=== PATIENT | female | born 1960 | race Caucasian/White ===

== ENCOUNTER → 2018-01-01 10:27 | Outpatient (CLI) | payer SELFPAY | PROVIDERS: PCP Emergency Medicine; Visit Provider Emergency Medicine | DX: R07.9 Chest pain, unspecified (principal) | CPT/HCPCS: 93005 ==

== ENCOUNTER → 2020-08-11 10:50 | Outpatient (CLI) | payer SELFPAY ==
--- NOTE | 2020-08-11 | ECG_ITS ---
APPROVED REPORT Exam: Resting ECG HR:106 bpm ECG Measurements Heart Rate 106 AXES NC 120 P 57 QRSd 70 QRS 60 QT 328 T 42 QTc 435 Conclusion Sinus tachycardia Biatrial enlargement Abnormal ECG Electronically signed by : Mike Humphreys, 08/12/2020 08:47:27
[2020-08-11 11:18] LABS: Basophils # 0.1 K/mm3 (0-0.2); Basophils % 0.7 % (0.1-2.0); Eosinophils # 0.1 K/mm3 (0.0-0.4); Eosinophils % 0.7 % (0.1-12.0); Hematocrit 45.5 % (37.0-47.0); Hemoglobin 14.3 g/dL (12.2-16.2); Lymphocytes % 24.2 % (10-50); Mean Corpuscular HGB Conc 31.4 g/dL (31.8-35.4); Mean Corpuscular Hemoglobin 27.1 pg (27.0-31.2); Mean Corpuscular Volume 86.3 fl (81-99); Mean Platelet Volume 7.3 fl (7.4-10.4); Monocytes # 0.4 K/mm3 (0.1-1.0); Monocytes % 5.4 % (1.7-9.3); Neutrophils # 5.6 K/mm3 (1.8-7.8); Platelet Count 330 K/mm3 (142-424); Red Blood Count 5.27 M/mm3 (4.20-5.40); Red Cell Distribution Width 14.4 % (11.5-17.5); White Blood Count 8.2 K/mm3 (4.8-10.8)
[2020-08-11 11:42] LABS: Chloride 104 mmol/L (98-107)
[2020-08-11 11:43] LABS: Potassium 4.9 mmoL/L (3.5-5.1); Sodium 140 mmol/L (136-145)
[2020-08-11 11:45] LABS: Alanine Aminotransferase 19 U/L (12-78); Alkaline Phosphatase 103 U/L (38-126); Amylase 73 U/L (30-110); Anion Gap 13.9 mEq/L (5-15); Aspartate Amino Transferase 29 U/L (14-36); Bilirubin,Total 0.5 mg/dl (0.2-1.3); Blood Urea Nitrogen 16 mg/dl (7-17); Carbon Dioxide 27 mmol/L (22.0-30.0); Estimated Glomerular Filt Rate 64 ml/min (>60); GFR (African American) 77 ML/MIN (>60)
[2020-08-11 11:46] LABS: Albumin Level 4.8 g/dl (3.5-5.0); Albumin/Globulin Ratio 1.5 (1.1-1.8); Creatine Kinase 56 U/L (30-135); Globulin 3.3 g/dL (1.3-3.2); Glucose 101 mg/dl (74-100); Lipase 174 U/L (23-300); Total Protein,Serum 8.1 g/dl (6.3-8.2)
[2020-08-11 11:55] LABS: CKMB Relative Index 1.4 U/L (0-4.0); Creatine Kinase MB 0.8 ng/ml (0.0-2.03)
[2020-08-11 12:00] LABS: Troponin I < 0.01 ng/ml (0.00-0.034)
== END ==
PROVIDERS: Visit Provider Physician Assistant
DX: R07.9 Chest pain, unspecified (principal); K21.9 Gastro-esophageal reflux disease without esophagitis
CPT/HCPCS: 36415; 80053; 82150; 82550; 82553; 83690; 84443; 84484; 85025; 93005

== ENCOUNTER → 2021-08-29 13:29 | Outpatient (CLI) | payer OTHER, SELFPAY ==
--- NOTE | 2021-08-29 13:42 | XR_ITS ---
FINAL REPORT CLINICAL HISTORY: bunion pain FINDINGS: RIGHT FOOT: Three views of the right foot were obtained. There is no acute fracture or dislocation. There are moderate degenerative changes. There are multiple subchondral cysts or chronic erosions. There is dorsal dislocation of the 2nd, 3rd, and 4th digits at the MTP joints. There is soft tissue swelling lateral to the 5th MTP joint. There is a chronic calcification medial to the 5th MTP joint. IMPRESSION: Moderate degenerative change with multiple subchondral cysts or chronic erosions and other chronic findings as described. Reviewed, Interpreted and Dictated by Codey Burch III, MD Transcribed by Miki Preciado Authenticated by Codey Burch III, MD on 08/29/2021 02:38:51 PM [facility]
--- NOTE | 2021-08-29 13:42 | XR_ITS ---
FINAL REPORT CLINICAL HISTORY: Bunion pain FINDINGS: LEFT FOOT: Three views of the left foot were obtained. There is no acute fracture or dislocation. There is severe hallux valgus deformity. There is lateral subluxation and angulation of the 1st digit. There are multiple subchondral cysts or chronic erosions. There is dorsal dislocation of the 2nd, 3rd, and 4th digits at the MTP joints. IMPRESSION: Severe hallux valgus deformity with other chronic changes as described. Reviewed, Interpreted and Dictated by Codey Burch III, MD Transcribed by Miki Preciado Authenticated by Codey Burch III, MD on 08/29/2021 02:38:48 PM [facility]
== END ==
PROVIDERS: PCP Family Medicine; Visit Provider Podiatrist
DX: M79.672 Pain in left foot (principal); M79.671 Pain in right foot
CPT/HCPCS: 73630

== ENCOUNTER 2021-09-09 14:24 | Emergency (ER) | payer OTHER, SELFPAY ==
[2021-09-09 14:40] VITALS: BP 142/85; PULSE 119; RESP 16; TEMP 36.9; O2SAT 98; BMI 25.2
--- NOTE | 2021-09-09 15:15 | HMH.EDUTC ---
[facility] Disposition Clinical Impression: Cat bite Qualifiers: Encounter type: initial encounter Qualified Code(s): W55.01XA - Bitten by cat, initial encounter Disposition: Home, Self-Care Condition on Discharge: Good Instructions: Amoxicillin and Clavulanic Acid, DI for Cat Bite Additional Instructions: Clean area well with antibacterial soap and water Watch area for worsening of swelling and redness follow up immediately if seen Return if needed Take medication as prescribed Over the counter Motrin and/or Tylenol for fever or pain Straight to ER if any life threatening symptoms, worsening of infection, drainage, streaks Etc Prescriptions: Amoxicillin/Potassium Clav [Amox-Clav 875-125 mg Tablet] 1 tab PO BID #14 tab Transmission Status: Pending to [facility] Referrals: Damon Osuna MD [Primary Care Provider] - Time of Disposition: 15:22 Medical Decision Making - Osmin Inquiry Pt receiving controlled substance: No Osmin was queried for this patient: No Vital Signs: 09/09/21 14:40 Temperature 98.4 F Temperature Source Oral Pulse Rate [Right Brachial] 119 H Respiratory Rate 16 Blood Pressure [Right Arm] 142/85 H Blood Pressure Mean [Right Arm] 104 Blood Pressure Source [Right Arm] Automatic Cuff Blood Pressure Position [Right Arm] Sitting 02 Sat by Pulse Oximetry 98 Oxygen Delivery Method Room Air [facility] HPI - General Stated complaint: AO 09/06 bit by cat R leg Time Seen by Provider: 09/09/21 15:15 Mode of Arrival: Ambulatory Source of Information: Patient Limitations: No Limitations Description of Symptoms (Recalled from Triage Doc. by RN): PATIENT STATES SHE WAS BITTEN BY A STRAY CAT ON HER RIGHT ANKLE FRIDAY HEENT Symptoms (Recalled from RN notes): No Resp Symptoms (Recalled from RN notes): No Skin Symptoms (Recalled from RN notes): Yes MS Symptoms (Recalled from RN notes): No Functional Status (Recalled from RN notes): WNL - History of Present Illness Provider Complaint: Patient states that she was bitten by stray cat on Friday States that she noticed that it was looking red around the bite area and having some swelling States that daughter is a nurse and said she needed to get it checked so she came in - Related Data Home Medications Medication Instructions Recorded Confirmed celecoxib 100 mg capsule 100 mg PO cap 08/29/21 08/29/21 cetirizine 10 mg tablet 10 mg PO tab 08/29/21 08/29/21 omeprazole 40 mg capsule,delayed 40 mg PO cap 08/29/21 08/29/21 release sulfasalazine 500 mg ea PO 08/29/21 08/29/21 tablet,delayed release Previous Rx's Medication Instructions Recorded ondansetron 4 mg disintegrating 4 mg PO TID PRN 4 Days #12 tab 03/10/18 tablet Amoxicillin/Potassium Clav 1 tab PO BID #14 tab 09/09/21 [Amox-Clav 875-125 mg Tablet] Allergies Allergy/AdvReac Type Severity Reaction Status Date / Time No Known Allergies Allergy Verified 08/29/21 14:19 - Worker's Comp Is this a Worker's Comp case?: No [facility] History - Hepatitis A Screen Attestation statement:: This patient has been screened for Hepatitis A risk factors. I have reviewed the patient's past medical history: Yes Medical History: Reports:: Anxiety, Gastroesophageal Reflux Disease(GERD) Other Medical History: Reports: Arthritis Other Surgeries: Yes: No Previous Surgery - Social History Smoking Status: Current every day smoker Tobacco Type: cigarettes # Packs/Day (cigarettes): 1 Alcohol Intake: never Substance Use Type: denies use Occupational Status: other Housing: house Household Members: family - Psychiatric History Pschychiatric History:: Reports:: Anxiety Family Hx:: Diabetes ROS Obtained: Yes All systems reviewed & no additional complaints, Yes Systems reviewed as appropriate & no additional complaints - Constitutional Constitutional: Reports system reviewed and no additional complaints, except as docu, Denies body ache, Denies chills, Denies f
[2021-09-09 15:25] VITALS: BP 142/85; PULSE 119; RESP 16; TEMP 36.9; O2SAT 98
== END 2021-09-09 15:29 | disposition home or self-care (01) ==
PROVIDERS: Emergency Provider Nurse Practitioner; PCP Family Medicine
DX: S91.031A Puncture wound without foreign body, right ankle, initial encounter (principal); W55.01XA Bitten by cat, initial encounter
CPT/HCPCS: 99212; G0463

== ENCOUNTER → 2021-12-24 10:40 | Outpatient (CLI) | payer OTHER, SELFPAY ==
[2021-12-24 11:22] LABS: Basophils # 0.1 K/mm3 (0-0.2); Basophils % 1.2 % (0.1-2.0); Eosinophils # 0.1 K/mm3 (0.0-0.4); Eosinophils % 0.9 % (0.1-12.0); Hematocrit 43.8 % (37.0-47.0); Hemoglobin 13.8 g/dL (12.2-16.2); Lymphocytes % 31.5 % (10-50); Mean Corpuscular HGB Conc 31.5 g/dL (31.8-35.4); Mean Corpuscular Hemoglobin 27.9 pg (27.0-31.2); Mean Corpuscular Volume 88.6 fl (81-99); Mean Platelet Volume 7.8 fl (7.4-10.4); Monocytes # 0.5 K/mm3 (0.1-1.0); Monocytes % 7.4 % (1.7-9.3); Neutrophils # 3.7 K/mm3 (1.8-7.8); Neutrophils % 58.9 % (37.0-80.0); Platelet Count 305 K/mm3 (142-424); Red Blood Count 4.94 M/mm3 (4.20-5.40); Red Cell Distribution Width 15.4 % (11.5-17.5); White Blood Count 6.3 K/mm3 (4.8-10.8)
[2021-12-24 11:43] LABS: Chloride 107 mmol/L (98-107)
[2021-12-24 11:44] LABS: Potassium 4.2 mmoL/L (3.5-5.1); Sodium 143 mmol/L (136-145)
[2021-12-24 11:46] LABS: Blood Urea Nitrogen 13 mg/dl (7-17); Estimated Glomerular Filt Rate 72 ml/min (>60); GFR (African American) 88 ML/MIN (>60)
[2021-12-24 11:47] LABS: Alanine Aminotransferase 19 U/L (12-78); Albumin Level 4.4 g/dl (3.5-5.0); Albumin/Globulin Ratio 1.5 (1.1-1.8); Alkaline Phosphatase 94 U/L (38-126); Anion Gap 10.2 mEq/L (5-15); Aspartate Amino Transferase 31 U/L (14-36); Calcium 8.9 mg/dl (8.4-10.2); Carbon Dioxide 30 mmol/L (22.0-30.0); Globulin 2.9 g/dL (1.3-3.2); Glucose 92 mg/dl (74-100); Total Protein,Serum 7.3 g/dl (6.3-8.2)
[2021-12-24 11:49] LABS: Bilirubin,Total < 0.1 mg/dl (0.2-1.3)
== END ==
PROVIDERS: PCP Family Medicine; Visit Provider Internal Medicine
DX: M06.9 Rheumatoid arthritis, unspecified (principal); R53.83 Other fatigue; Z79.899 Other long term (current) drug therapy
CPT/HCPCS: 36415; 80053; 85025

== ENCOUNTER → 2022-09-03 11:23 | Outpatient (POV) | payer OTHER, SELFPAY | PROVIDERS: Visit Provider Dermatology | DX: Z00.00 Encounter for general adult medical examination without abnormal findings (principal) ==

== ENCOUNTER 2023-10-31 12:46 | Outpatient (CLI) | payer MEDICARE, SELFPAY ==
[2023-10-31] MEDS: ALBUTEROL 0.083% 2.5 MG/3 ML NEB IH (14:01)
--- NOTE | 2023-10-31 14:16 | XR_ITS ---
FINAL REPORT CLINICAL HISTORY: CHRONIC COUGHING congestion with yellow/brown sputum 40 yr smoker FINDINGS: No acute pulmonary density is evident. There is no evidence of effusion or other pleural disease. The mediastinum has a normal appearance. The cardiac silhouette is unremarkable. IMPRESSION: Unremarkable chest exam. Authenticated and ERN
[2023-10-31 15:51] LABS: Basophils # 0.1 K/mm3 (0-0.2); Basophils % 0.7 % (0.1-2.0); Eosinophils # 0.1 K/mm3 (0.0-0.4); Eosinophils % 1.1 % (0.1-12.0); Hematocrit 39.4 % (37.0-47.0); Hemoglobin 12.3 g/dL (12.2-16.2); Lymphocytes # 2.7 K/mm3 (0.7-4.5); Lymphocytes % 31.2 % (10-50); Mean Corpuscular HGB Conc 31.2 g/dL (31.8-35.4); Mean Corpuscular Hemoglobin 28.1 pg (27.0-31.2); Mean Corpuscular Volume 90.2 fl (81-99); Mean Platelet Volume 8.3 fl (7.4-10.4); Monocytes # 0.6 K/mm3 (0.1-1.0); Monocytes % 6.7 % (1.7-9.3); Neutrophils # 5.1 K/mm3 (1.8-7.8); Neutrophils % 60.3 % (37.0-80.0); Platelet Count 254 K/mm3 (142-424); Red Blood Count 4.37 M/mm3 (4.20-5.40); Red Cell Distribution Width 16.3 % (11.5-17.5); White Blood Count 8.5 K/mm3 (4.8-10.8)
[2023-10-31 16:52] LABS: Chloride 108 mmol/L (98-107); Sodium 141 mmol/L (136-145)
[2023-10-31 16:53] LABS: Potassium 4.5 mmoL/L (3.5-5.1)
[2023-10-31 16:54] LABS: Erythrocyte Sedimentation Rate 22 mm/hr (0-30)
[2023-10-31 16:55] LABS: Alanine Aminotransferase 20 U/L (12-78); Alkaline Phosphatase 90 U/L (38-126); Anion Gap 9.5 mEq/L (5-15); Aspartate Amino Transferase 28 U/L (14-36); Bilirubin,Total 0.2 mg/dl (0.2-1.3); Blood Urea Nitrogen 17 mg/dl (7-17); Calcium 9.6 mg/dl (8.4-10.2); Carbon Dioxide 28 mmol/L (22.0-30.0); Estimated Glomerular Filt Rate 56 ml/min (>60); GFR (African American) 68 ML/MIN (>60); Glucose 82 mg/dl (74-100)
[2023-10-31 16:56] LABS: Albumin/Globulin Ratio 1.4 (1.1-1.8); Globulin 2.9 g/dL (1.3-3.2); Total Protein,Serum 6.9 g/dl (6.3-8.2)
== END 2023-10-31 23:59 | disposition home or self-care (01) ==
LOC: RT 12:47
PROVIDERS: Internal Medicine; PCP Family Medicine; Visit Provider Physician Assistant
DX: R05.3 Chronic cough (principal); M05.79 Rheumatoid arthritis with rheumatoid factor of multiple sites without organ or systems involvement; Z79.899 Other long term (current) drug therapy
CPT/HCPCS: 36415; 71046; 80053; 85025; 85651; 94060; 94726; 94729; J7613

== ENCOUNTER 2024-05-18 11:57 | Outpatient (CLI) | payer MEDICARE, SELFPAY ==
--- NOTE | 2024-05-18 11:59 | XR_ITS ---
FINAL REPORT CLINICAL HISTORY: foot pain COMPARISON: 08/29/2021 FINDINGS: RIGHT FOOT Three views demonstrate no acute fracture or dislocation. There are advanced hypertrophic changes of osteoarthritis at the 1st through 5th metatarsal phalangeal joints with underlying degenerative cyst formation. There is subluxation of the second and third metatarsal phalangeal joints. There is degenerative subchondral cyst formation in the distal portion of the first proximal phalange. No acute soft tissue abnormality is seen. IMPRESSION: Advanced changes of osteoarthritis most evident at the metatarsophalangeal joints, particularly at the 2nd through 5th. Inflammatory arthritis such as rheumatoid or psoriatic not entirely excluded. Reviewed, Interpreted and Dictated by Umair Degroot MD Transcribed by Makeda Puentes Authenticated and [facility]
--- NOTE | 2024-05-18 11:59 | XR_ITS ---
FINAL REPORT CLINICAL HISTORY: foot pain COMPARISON: 08/29/2021 FINDINGS: LEFT FOOT Three views were obtained. There is a marked hallux valgus deformity. There is complete lateral dislocation of the first proximal phalange relative to the distal portion of the first metatarsal. There are hammertoe deformities of the 2nd through 5th digits with selective hypertrophic changes of the 2nd through 5th metatarsophalangeal joints. Underlying inflammatory arthritis cannot be excluded. There is dislocation of the second and third metatarsophalangeal joints. No acute soft tissue abnormality is seen. IMPRESSION: Dislocation of the first, second, and third metatarsophalangeal joints. Reviewed, Interpreted and Dictated by Umair Degroot MD Transcribed by Makeda Puentes Authenticated and [facility]
== END 2024-05-18 23:59 | disposition home or self-care (01) ==
LOC: RAD 11:57
PROVIDERS: PCP Family Medicine; Visit Provider Podiatrist
DX: M79.671 Pain in right foot (principal); M79.672 Pain in left foot
CPT/HCPCS: 73630

== ENCOUNTER 2024-07-05 14:59 | Outpatient (CLI) | payer MEDICARE, SELFPAY ==
--- NOTE | 2024-07-05 15:01 | US_ITS ---
PROCEDURE INFORMATION: Exam: US Right Breast, Complete Exam date and time: 07/05/2024 3:05 PM Age: 63 years old Clinical indication: Palpable abnormality in the right breast TECHNIQUE: Imaging protocol: Complete ultrasound of all four quadrants of the right breast and the retroareolar regions, including ultrasound of the axilla when performed. COMPARISON: No relevant prior studies available. FINDINGS: ULTRASOUND: Breast ultrasound findings: Sonographic images of the right breast including the retroareolar region, all 4 quadrants and the axilla do not demonstrate any suspicious solid or cystic masses. The patient has a bruise at the right 10 o'clock axis the patient reports a palpable abnormality at this location. Sonographic images demonstrate increased echogenicity in the subcutaneous fat with 2 for full subcentimeter cystic components. Clear of interest measures 1.8 x 1.3 cm in greatest dimension as most consistent with benign posttraumatic fat necrosis. No architectural distortion or acoustical shadowing. No skin thickening or axillary adenopathy. IMPRESSION: No sonographic evidence of malignancy. Palpable abnormality under a visible bruise on the skin of the right upper quadrant 5 sonographically benign posttraumatic fat necrosis. Further evaluation of a palpable abnormality should be based on clinical grounds regardless of radiographic findings or lack thereof. A bilateral mammogram is recommended at the current time if the patient has not already done so. ASSESSMENT: BI-RADS Category 2: Benign.
== END 2024-07-05 23:59 | disposition home or self-care (01) ==
LOC: RAD 14:59
PROVIDERS: PCP Family Medicine; Visit Provider Physician Assistant
DX: N63.11 Unspecified lump in the right breast, upper outer quadrant (principal)
CPT/HCPCS: 76641

== ENCOUNTER 2024-10-20 07:25 | Outpatient (CLI) | payer MEDICARE, SELFPAY ==
--- OUTSIDE RECORDS SUMMARY | 2024-08-12 07:15 | XMS_ITS ---
[facility] Organization [facility] Address [address] [facility] [address] [place] [id number] Care Team Providers Care Mobility Developer Name Role Phone Logan Osuna Primary Care Provider [phone] Jus Moreno Unavailable [phone] Allergies No Known Allergies REASON FOR VISIT right eye hurting and red Medications Medication SIG (Take, Route, Frequency, Duration) Notes Start Date End Date Status hydrOXYzine HCl 25 MG 1 tablet as needed Orally four times a day as needed Active Albuterol Sulfate HFA 108 (90 Base) MCG/ACT 2 puff(s) inhaled every 6 hours Active CeleBREX 200 MG 1 cap(s) orally once a day Active Paxil 20 MG 1 tablet in the morn ing Orally Once a day; Duration: 90 days Active Omeprazole 40 MG 1 cap(s) orally once a day; Duration: 30 days Active Ofloxacin 0.3 % 1 drop Ophthalmic Fo ur times a day 08/12/2024 Active rOPINIRole HCl 0.5 MG 1 tablet Orally On ce a day; Duration: 90 days Active sulfaSALAzine 500 MG 3 tablet orally BID Active Vital Signs Blood pressure systolic 149 mm Hg 08/13/19 25 Blood pressure diastolic 90 mm Hg 025 Heart Rate 105 /min 08/12/2024 Height 64 in 08/12/2024 Weight 145.4 lbs 08/12/2024 BMI 24.96 kg/m2 08/12/2024 Encounters Encounter Location Date Provider Diagnosis [place] [address] [facility] [address] [place] [id number] 08/12/2024 Jus Moreno Conjunctivitis of ri ght eye, unspecified conjunctivitis type H10.9 ; Elevated blood pressure reading R03.0 and BMI 24.0-24.9, adult Z68.24 Assessments Encounter Date Diagnosis (ICD Code) Assessment Notes Treatment Notes Treatment Clinical Notes Section Notes 08/12/2024 Conjunctivitis of right eye, unspecified conjunctivitis type (ICD-10 - H10.9) 08/12/2024 Elevated blood pressure reading (ICD-10 - R03.0) 08/12/2024 BMI 24.0-24.9, adult (ICD-10 - Z68.24) Plan Of Treatment Medication Medication Name Sig Start Date Stop Date Notes Ofloxacin 0.3 % 1 drop Ophthalmic Four times a day 025 Next Appt Details Follow Up: 3 or 4 Weeks, Leisa son: Provider Name:Danette Banuelos cynthia, 12/01/2024 09:00:00 AM, [address] [facility] [address] [facility], [address], [place], [place], [id number], Progress Notes * Jose Elias HUIOB:1960 (63 yo F)Acc No.[id number]:08/12/2024 Progress Notes Patient: Whitney GONZALEZ Provider: Rhonda Moreno M.D. :1960 A ge:63 Y S ex:Female Date:08/12/2024 Address:[address] [place], [place] [id number] Pcp:Logan Osuna Subjective: * Chief Complaints: * 1 . Right eye hurting and red. * HPI: O pthalmology: 63 year old female presents with c/o eye pain P t complains of rt eye pain and redness for 2-3 days. Pt states she works outside alot and does not remembering injury or getting anything in eye. * ROS: D ERMATOLOGY: no R candida. n o H moshe. G ASTROENTEROLOGY: no N ausea. n o V omiting. U ROLOGY: no D ifficulty urinating. n o B lood in urine. * Medical History: A maria del rosario Reflux, Arthritis , Rheumatoid Arthritis, COPD, Tobacco addiction. * Surgical History: D enies Past Surgical History. * Hospitalization/Major Diagno stic Procedure: D enies Past Hospitalization. * Family History: F ather: alive. M [...] , Taking rOPINIRole HCl 0.5 MG Tablet 1 tablet Orally Once a day , Discontinued Trelegy Ellipta 100-62.5-25 MCG/ACT Aerosol Powder Breath Activated 1 puff Inhalation Once a day , Medication List reviewed and reconciled with the patient * Allergies: N .K.D.A. Objective: * Vitals: W t: 145.4, Temp: 97.8, BP: 149/90, HR: 105, Nurse: mendy, Ht: 64, BMI:24.96. * Examination: G eneral Examination: General Appearance: N AD. H EENT: P ERRLA , EOM's with normal ROM , conjunctival injection of right eye. Assessment: * Assessment: 1. C onjunctivitis of right eye, unspecified conjunctivitis type - H10.9 (Primary) ?2. E levated blood pressure reading - R03.0 3 . B OR 24.0-24.9, adult - Z68.24 Plan: * Treatment: * Procedure Codes: G 2211 Complex e/m visit add on, 3077F SYST BP = 140 MM HG6 IT, 3080F DIAST BP = 90 MM HG, G8420 BMI<30 AND >=22 CALC & DOCU * Follow Up: 3 or 4 Weeks * Images: Billing Information: * Visit Code: 16548 Office Visit, Est Pt., Level 3. * Procedure Codes: G2211 Complex e/m visit add on. 3077F SYST BP = 140 MM HG6 IT. 3080F DIAST BP = 90 MM HG. G8420 BMI<30 AND >=22 CALC & DOCU. * Electronic signature of Ana Moreno MD on 10/20/2024 at 07:26 AM EDT Sign off status: Pending * Provider: Rhonda Moreno M.D. Date: 0 08/12/2024 Generated for Cecilio lee/Flip/Mikelitting on: 0 10/20/2024 07:26 AM EDT History and Physical Notes * HPI (History of Present Illness) Category Sub-Category Detail Notes Category Not es Opthalmology eye pain Pt complains of rt eye pain and redness for 2-3 days. Pt states she works outside alot and does not remembering injury or getting anything in eye Examination Category Sub-Category Detail Notes Category Not es General Examination HEENT: PERRLA , EOM 's with normal ROM , conjunctival injection of right eye General Appearance: NAD
--- OUTSIDE RECORDS SUMMARY | 2024-09-02 06:00 | XMS_ITS ---
Author Organization [facility] Address [address] [facility] [address] [place] [phone] Care Team Providers Care Sorting Livestock Worker Name Role Phone Logan Osuna Primary Care Provider Jus Moreno Unavailable [phone] Allergies No Known Allergies REASON FOR VISIT [...] Provider Diagnosis [place] [address] [facility] [address] [place] [id number] 09/02/2024 Jus Moreno Elevated blood press ure [...] Details Follow Up: as scheduled,and prn, Reason: Provider Name:Danette marie, 12/01/2024 09:00:00 AM, [address] [facility] [address] [facility], [address] , [place], [place], [phone], Progress Notes * Jose Elias HUIOB:1960 (63 yo F)Acc No.[id number]:09/02/2024 Progress Notes Patient: Whitney GONZALEZ Provider: Rhonda Moreno M.D. :1960 A ge:63 Y S ex:Female Date:09/02/2024 Address:[address] [place], [place] [id number] Pcp:Logan Osuna Subjective: * Chief Complaints: * [...] unspecified trigger - J30.9 5 . B [place] 24.0-24.9, adult - Z68.24 Plan: * Treatment: [...] * Images: Billing Information: * Visit Code: 47212 Office Visit, Est Pt., Level 4. * Procedure Codes: G2211 Complex e/m visit add on. 3074F SYST BP LT 130 MM HG. 3079F DIAST BP 80-89 MM HG. G8420 BMI<30 AND >=22 CALC & DOCU. * Electronic signature of Ana Moreno MD on 10/20/2024 at 07:27 AM EDT Sign off status: Pending * Provider: Rhonda Moreno M.D. Date: 0 09/02/2024 Generated for Cecilio lee/Flip/eTransmitting on: 0 10/20/2024 07:27 AM EDT History and Physical Notes * [...]
--- OUTSIDE RECORDS SUMMARY | 2024-10-12 09:45 | XMS_ITS ---
Author Organization [facility] Address [address] [facility] [address] [place] [id number] Care Team Providers Care Cable Machine Operator Name Role Phone Logan Osuna Primary Care Provider Results Component Value Reference Range Notes P-CBC With Platelet No Diffe rential Reviewed date:10/14/2024 04:24:45 PM Interpretation:Normal Performing Lab: Notes/Report: Test performed by [facility] [address] [place], [place] [address] , [place] [address] Morgan Sweeney MD, Rotary Rock Drilling Machine Operator CLIA: [id number] WBC 6.5 3.8-11.5 K/uL Red Blood Cell [...] Interpretation:Normal Performing Lab: Notes/Report: Test performed by [facility] [address] [place], [place] [address] , [address], [place] [address] Morgan Sweeney MD, Rotary Rock Drilling Machine Operator CLIA: [id number] Neutrophils-Manual 62 41-77 % Lymphocytes Manual 28 14-48 % Monocytes Manual 6 4-13 % Eosinophils Manual 3 0-8 % Basophils Manual 1 0-1 % Polychromasia Moderate Poikilocytosis Moderate Verito Cell Few Ovalocytes Few Tear Drop Cells Few Platelet Slide Review Normal REASON FOR VISIT blood work Encounters Encounter Location Date Provider Diagnosis [facility] [address] [facility] [address] [facility] [address] [place] [id number] 10/12/2024 R David Osuna 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 and 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 Assessments Encounter Date Diagnosis (ICD Code) Assessment Notes Treatment Notes Treatment Clinical Notes Section Notes 10/12/2024 Rheumatoid arthritis involving multiple sites with positive rheumatoid factor (ICD-10 - M05.79) 10/12/2024 Immunodeficiency due to drugs (ICD-10 - D84.821) Plan Of Treatment Next Appt Details Provider Name:Danette Palma Sahilleanne y, 12/01/2024 09:00:00 AM, [address] [facility] 36 [facility], [address], [place], [place], [id number], Progress Notes * Jose Elias HUIOB:1960 (63 yo F)Acc No.[id number]:10/12/2024 Patient: Whitney GONZALEZ Provider: Logan Osuna M.D. :1960 A ge:63 Y S ex:Female Date:10/12/2024 Address:[address] [place] [address] [id number] Subjective: * Chief Complaints: * 1 . [...] W BC 6.5 3.8-11.5 - K/uL * [facility], IT support 10/13/2024 04:35:04 : This order was created by the Interface. Logan Osuna 10/14/2024 04:17:43 PM EDT > reviewed. Please fax results to materials recycler who ordered the lab Tasneem Taylor 10/14/2024 [...] T ear Drop Cells Few - * [facility], IT support 10/13/2024 04:35:05 : This order was created by the Interface. Logan Osuna 10/14/2024 04:17:43 PM EDT > reviewed. Please fax results to materials recycler who ordered the lab Tasneem Taylor 10/14/2024 04:24:39 PM EDT >results faxed * Images: Billing Information: * Visit Code: * Procedure Codes: * Electronic signature of Logan Osuna MD on 10/20/2024 at 07:27 AM EDT Sign off status: Pending * Provider: Logan Osuna M.D. Date: 10/12/2024 Generated for Cecilio lee/Flip/eTransmitting on: 0 10/20/2024 07:27 AM EDT
--- NOTE | 2024-10-20 07:26 | CT_ITS ---
FINAL REPORT TECHNIQUE: Thin section axial images were obtained from the lung apices to the upper abdomen by computed tomography. Reformatted images were obtained and reviewed. This study was performed with techniques to keep radiation doses al low as reasonably achievable (ALARA). Individualized dose reduction techniques using automated exposure control or adjustment of mA and/or kV according to the patient's size were employed. CLINICAL HISTORY: TOBACCO USE CURRENT SMOKER 1PPD X49 YEARS COMPARISON: None FINDINGS: CHEST CT LOW DOSE 65-year-old female, current smoker, 82-msnd-yioe history. CTDI vol (mGy): 2.90 DLP (mGy-cm): 94.29 There is no axillary adenopathy. There is no mediastinal or hilar mass or adenopathy. The heart is normal in size. There is no pericardial or pleural effusion. There is mild emphysema and mild pulmonary scarring. Lung window images demonstrate multiple tiny 2-3 mm nodular densities throughout the peripheral bilateral upper lobes. A wire rope sales representative example in the right upper lobe is a 3 mm nodule best seen on image #16 of series 4. There is another nodular opacity measuring up to 4 mm in size in the left lung base, best seen on image #51 of series 4. Limited images of the upper abdomen demonstrate a small sliding-type hiatal hernia. A large gallstone is present in the gallbladder. IMPRESSION: Lung-RADS category 2S, the S designation for the large gallstone. Recommend 12 month follow up low dose chest CT. Reviewed, Interpreted and Dictated by Umair Degroot MD Transcribed by Giana Gallagher Authenticated and [facility]
--- OUTSIDE RECORDS SUMMARY | 2024-10-20 07:27 | XMS_ITS | Patient Health Record ---
Author Organization [facility] [place] Address [address] [facility] [address] [place] [id number] Care Team Providers Care Clinical Editor Name Role Phone Logan Osuna Primary Care Provider [place], Jus Unavailable [phone] Danette Henson Unavailable [phone] Allergies No Known Allergies Results Component Value Reference Range Notes P-CBC With Platelet No Diffe rential Reviewed date:10/14/2024 04:24:45 PM Interpretation:Normal Performing Lab: Notes/Report: Test performed by [facility] [address] , [address], [place] [address] Morgan Sweeney MD, [employer] CLIA: [id number] WBC 6.5 3.8-11.5 K/uL Red Blood Cell [...] Interpretation:Normal Performing Lab: Notes/Report: Test performed by [facility] [address] [place] [address] , [address], [place] [address] Morgan Sweeney MD, [employer] CLIA: [id number] Neutrophils-Manual 62 41-77 % Lymphocytes Manual 28 14-48 % Monocytes Manual 6 4-13 % Eosinophils Manual 3 0-8 % Basophils Manual 1 0-1 % Polychromasia Moderate Poikilocytosis Moderate Verito Cell Few Ovalocytes Few Tear Drop Cells Few Platelet Slide Review Normal CBC Venipuncture (in house) Reviewed date:06/02/2024 11:24:11 AM Interpretation: Performing Lab: Notes/Report: wbc 5.4 3.5 - 10 lymph 21.6 15 - 50 mid 5.9 2 - 15 gran 72.5 35 - 80 rbc 4.54 3.5 - 5.5 hgb 12.7 11.5 - 16.5 hct 39.0 35 - 55 mcv 85.8 75 - 100 mch 28.1 25 - 35 mchc 32.7 31 - 38 platlet 244 100 - 400 P-Comprehensive Metabolic Pa asif (CMP) Reviewed date:06/03/2024 08:46:12 AM Interpretation: Performing Lab: Notes/Report: Test performed by [facility] [address] [place] [address] , [address], [place] [address] Morgan Sweeney MD, [employer] Lawyer CLIA: [id number] Sodium 139 135-145 mmol/L Potassium 4.6 3.5-5.3 mmol/L Chloride 105 97-108 mmol/L CO2 25 22-32 mmol/L Glucose 83 65-99 mg/dL BUN 15 8-23 mg/dL Creatinine 0.88 0.50-1.00 mg/dL Calcium 9.5 8.6-10.4 mg/dL eGFR by Creatinine 73 >59 mL/min/1.73m2 Protein 6.9 6.0-8.3 g/dL Albumin 4.3 3.5-5.3 g/dL Alkaline Phosphatase 83 35-121 IU/L ALT (SGPT) 18 <5-47 IU/L AST (SGOT) 21 <5-40 IU/L Bilirubin, Total 0.3 <0.2-1.2 mg/dL A/G Ratio 1.7 1.1-2.5 F-F-Trnwlnzw Protein (CRP) Reviewed date:06/03/2024 08:46:12 AM Interpretation: Performing Lab: Notes/Report: Test performed by [facility] [place] [address] Morgan Sweeney MD, [employer] Lawyer CLIA: [id number] C-Reactive Protein (CRP) 0.23 <0.50 mg/dL P-Sed Rate (ESR) Reviewed date:06/03/2024 08:46:12 AM Interpretation: Performing Lab: Notes/Report: Test performed by [facility] [place] [address] Morgan Sweeney MD, Military Lawyer CLIA: [id number] Erythrocyte Sedimentation Ra te (ESR), Automated 45 <31 mm/hr P-Lipid Panel Reviewed date:06/03/2024 08:46:12 AM Interpretation: Performing Lab: Notes/Report: Test performed by [facility] [place] [id number] Morgan Sweeney MD, Military Lawyer CLIA: [id number] Cholesterol 183 <200 mg/dL Triglycerides 118 <150 mg/dL HDL Cholesterol 50 >39 mg/dL Cholesterol / HDL Ratio 3.66 0.00-4.44 Ratio Non-HDL Cholesterol 133 <130 mg/dL LDL Cholesterol (Calculation) 109 <130 mg/dL LDL Cholesterol Levels* Less than 100 mg/dL Optimal 100 to 129 mg/dL Near Optimal/ Above Optimal 130 to 159 mg/dL Borderline High 160 to 189 mg/dL High 190 mg/dL and above Very High * Categories as recommended by the 2004 ATPIII guidelines LDL/HDL Ratio 2.2 <3.3 Ratio LDL Cholesterol Patient History Test Date: 08/01/2023 LDL Results: 129 Units: mg/dL % Change: - Test Date: 06/02/2024 LDL Results: 109 Units: mg/dL % Change: -15% P-Magnesium Reviewed date:06/03/2024 08:46:12 AM Interpretation: Performing Lab: Notes/Report: Test performed by [facility] [address] [place] [address] , [place] [address] Morgan Sweeney MD, Military Lawyer CLIA: [id number] Magnesium 2.0 1.6-2.4 mg/dL P-TSH reflex to FT4 Reviewed date:06/03/2024 08:46:12 AM Interpretation: Performing Lab: Notes/Report: Test performed by [facility] [address] [place] [address] , [place] [id number] Morgan Sweeney MD, Military Lawyer CLIA: [id number] TSH reflex to FT4 2.07 0.43-5.25 mU/L Cologuard Reviewed date:07/06/2024 02:00:30 PM Interpretation:Negative Performing Lab: Notes/Report: Negative Cologuard negative CBC Fingerstick (in house) Reviewed date:10/24/2023 08:41:05 AM Interpretation: Performing Lab: Notes/Report: wbc 5.9 3.5 - 10 lym 29.9% 15 - 50 mid 8.1% 2 - 15 gran 62.0% 35 - 80 rbc 4.27 3.5 - 5.5 hgb 12.1 11.5 - 16.5 hct 37.9 35 - 55 mcv 88.6 75 - 100 mch 28.5 25 - 35 mchc 32.1 31 - 38 plat 237 100 - 400 CXR Reviewed date:11/04/2023 10:19:19 AM Interpretation:Negative Performing Lab: Notes/Report: Negative Pulmonary Function Complete Reviewed date:11/21/2023 08:44:10 AM Interpretation: Performing Lab: Notes/Report: Ultrasound : Breast, right Reviewed date:07/16/2024 04:36:54 PM Interpretation: Performing Lab: Notes/Report: Ultrasound : Breast, right Reviewed date:07/16/2024 04:36:54 PM Interpretation: Performing Lab: Notes/Report: CBC Fingerstick (in house) Reviewed date:03/03/2024 01:12:01 PM Interpretation: Performing Lab: Notes/Report: wbc 6.9 3.5 - 10 lym 23.7 15 - 50 mid 5.9 2 - 15 gran 70.4 35 - 80 rbc 4.95 3.5 - 5.5 hgb 13.6 11.5 - 16.5 hct 42.7 35 - 55 mcv 86.3 75 - 100 mch 27.4 25 - 35 mchc 31.8 31 - 38 plat 199 100 - 400 P-Magnesium Reviewed date:12/03/2023 07:58:15 PM Interpretation:Normal Performing Lab: Notes/Report: Test performed by [facility] [address] , [place] [address] Morgan Sweeney MD, Military Lawyer CLIA: [id number] Magnesium 2.1 1.6-2.4 mg/dL P-TSH Reviewed date:12/03/2023 07:58:15 PM Interpretation:Normal Performing Lab: Notes/Report: Test performed by [facility] [address] [place] [address] , [address], [place] [address] Morgan Sweeney MD, Military Lawyer CLIA: [id number] TSH 1.78 0.43-5.25 mU/L P-Iron Reviewed date:12/03/2023 07:58:15 PM Interpretation:Normal Performing Lab: Notes/Report: Test performed by [facility] [address] [place] [address] , [address], [place] [address] Morgan Sweeney MD, Military Lawyer CLIA: [id number] Iron 74 37-145 ug/dL P-Sed Rate (ESR) Reviewed date:06/15/2024 08:20:38 AM Interpretation: Performing Lab: Notes/Report: Test performed by [facility] [address] [place] [address] , [address], [place] [address] Morgan Sweeney MD, Military Lawyer CLIA: [id number] Erythrocyte Sedimentation Ra te (ESR), Automated 30 <31 mm/hr Reason For Referral No Information Medications Medication SIG (Take, Route, Frequency, Duration) Notes Start Date End Date Status Omeprazole 40 mg TAKE ONE CAPSULE BY MOUTH ONCE A DAY; Duration: 30 Active Cetirizine HCl 10 MG 1 tablet [...] four times a day as needed Active PARoxetine HCl 20 mg TAKE ONE TABLET BY MOUTH EVERY MORNING; Duration: 30 Active Immunizations Vaccine Route Administration Date Status Comme nts Tetanus Tdap-Adacel (over 7yrs) IM Intramuscular 2014 Administered Problems Problem Type SNOMED Code ICD Code Onset Dates Problem Status W/U Status Risk Notes Problem Gastroesophageal reflux disease (654236464) GERD (gastroesophageal reflux disease) (K21.9) Active confirmed Problem Anxiety (97796102) Anxiety (F41.9) Active confi rmed Problem Sciatic nerve lesion (543544783) Piriformis syndrome of left side (G57.02) Active confirmed Problem Restless legs syndrome (14635364) Restless leg syndrome (G25.81) Active confirmed Problem Acute exacerbation of chronic obstructive airways disease (094157401) COPD exacerbation (J44.1) Active confirmed Problem Mixed hyperlipidemia (680889227) Mixed hyperlipidemia (E78.2) Active confirmed Problem Disorder of bone (12352189) Other specified disorders of bone density and structure, unspecified site (M85.80) Active confirmed Problem Sciatica (31598640) Sciatica of right side (M54.31) Active confirmed Problem Panic disorder (923270884) Panic attacks (F41.0) Active confirmed Problem Tension headache (217653638) Tension headache (G44.209) Active confirmed Problem Chronic bronchitis (31762919) Chronic bronchitis (J42) Active confirmed Problem Osteoarthritis of multiple joints (654079578) Osteoarthritis of multiple joints, unspecified osteoarthritis type (M15.9) Active confirmed Problem Rheumatoid arthritis (84305596) Rheumatoid arthritis involving multiple sites with positive rheumatoid factor (M05.79) Active confirmed Problem Sciatica (92436009) Acute right- sided low back pain with right-sided sciatica (M54.41) Active confirmed Problem Tobacco use (237138048) Tobacco use disorder (F17.200) Active confirmed Problem Rheumatoid arthritis (68213610) Rheumatoid arthritis flare (M06.9) Active confirmed Problem Allergic rhinitis (28759889) Allergic rhinitis, unspecified seasonality, unspecified trigger (J30.9) Active confirmed Problem Inflammation of joint of shoulder region (912612673) 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) Active confirmed Problem 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 Problem Body mass index 25-29 - overweight (194984925) Body mass index [BMI] 27.0-27.9, adult (Z68.27) Active confirmed Problem Gastroesophageal reflux disease (379301950) Gastroesophageal reflux disease, unspecified whether esophagitis present (K21.9) Active confirmed Problem Rheumatoid arthritis (85343757) Rheumatoid arthritis, involving unspecified site, unspecified whether rheumatoid factor present (M06.9) Active confirmed Vital Signs Heart Rate 84 /min 09/02/2024 Blood pressure diastolic 80 mm Hg 09/02/2024 Height 64 in 09/02/2024 Blood pressure systolic 124 mm Hg 09/02/2024 Weight 143.4 lbs 09/02/2024 BMI 24.61 kg/m2 09/02/2024 Encounters Encounter Location Date Provider Diagnosis [facility] [address] [place] [id number] 10/23/2023 Danette Henson Chronic cough R05.3 and Tobacco use disorder F17.[address] [facility] [address] [place], [place] [id number] 12/02/2023 R David Osuna Restless leg syndrom e G25.[address] [facility] [address] [place], [place] [id number] 02/11/2024 Danette Sahilchrissie Anxiety F41.9 ; Dulce c attacks F41.0 and [address]cess L02[address] [facility] [address] [place], [place] [id number] 03/03/2024 Danette Sahilchrissie Bronchitis J40 ; Anx iety F41.9 and Panic attacks F41.0 [facility] [address] [place], [place] [id number] 04/30/2024 R David Thao 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 [facility] [address] [place], [place] [id number] 06/02/2024 Danette Henson Adult general medica l examination Z00.00 ; GERD (gastroesophageal reflux disease) K21.9 ; Rheumatoid arthritis, involving unspecified site, unspecified whether rheumatoid factor present M06.9 ; Anxiety F41.9 ; Renal insufficiency N28.9 ; Chronic bronchitis J42 ; Panic attacks F41.0 ; Tobacco use disorder F17.200 ; Restless leg syndrome G25.81 ; Osteoarthritis of multiple joints, unspecified osteoarthritis type M15.9 ; Hyperkalemia E87.5 ; Mixed hyperlipidemia E78.2 ; Colon cancer screening Z12.11 and BMI 26.0-26.9,adult Z68.[address] [facility] [address] [place], [place] [id number] 06/30/2024 Danette Natividad Mass of upper outer quadrant of right breast N63.11 and Restless leg syndrome G25.81 [facility] [address] [place], [place] [id number] 08/12/2024 Jus [place] Conjunctivitis of ri ght eye, unspecified conjunctivitis type H10.9 ; Elevated blood pressure reading R03.0 and BMI 24.0-24.9, adult Z68.24 [facility] [address] [facility] [address] [place] [id number] 09/02/2024 Jus Moreno Elevated blood press ure reading R03.0 ; Restless leg syndrome G25.81 ; Conjunctivitis of right eye, unspecified conjunctivitis type H10.9 ; Allergic rhinitis, unspecified seasonality, unspecified trigger J30.9 and BMI 24.0-24.9, adult Z68.24 [facility] [address] [place], [place] [id number] 10/12/2024 R David Thao 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 and 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 [facility] [address] [facility] [address] [place] [id number] 11/04/2023 Danette Henson [facility] [address] [facility] [address] [place] [id number] 11/21/2023 Danette Henson [facility] [address] [facility] [address] [place] [id number] 12/03/2023 R David Thao [facility] [address] [facility] [address] [place] [id number] 05/07/2024 R David Thao [facility] [address] [facility] [address] [place] [id number] 06/03/2024 Danette Henson [facility] [address] [facility] [address] [place] [id number] 07/16/2024 Danette Henson Assessments Encounter Date Diagnosis (ICD Code) Assessment Notes Treatment Notes Treatment Clinical Notes Section Notes 04/30/2024 Rheumatoid arthritis involving multiple sites with positive rheumatoid factor (ICD-10 - M05.79) 09/02/2024 Restless leg syndrome (ICD-10 - G25.81) 09/02/2024 Elevated blood pressure reading (ICD-10 - R03.0) BP normal now 08/12/2024 Conjunctivitis of right eye, unspecified conjunctivitis type (ICD-10 - H10.9) 08/12/2024 Elevated blood pressure reading (ICD-10 - R03.0) 10/12/2024 Rheumatoid arthritis involving multiple sites with positive rheumatoid factor (ICD-10 - M05.79) 10/12/2024 Immunodeficiency due to drugs (ICD-10 - D84.821) 06/30/2024 Restless leg syndrome (ICD-10 - G25.81) 06/30/2024 Mass of upper outer quadrant of right breast (ICD-10 - N63.11) 06/02/2024 GERD (gastroesophageal reflux disease) (ICD-10 - K21.9) 03/03/2024 Anxiety (ICD-10 - F41.9) 03/03/2024 Bronchitis (ICD-10 - J40) 06/02/2024 Adult general medical examination (ICD-10 - Z00.00) Patient instructed to return to office Annually for Annual Wellness Visits to include annual screenings of Pain assessment, Functional Ability assessment, Cognitive Ability assessment, Fall Risk assessment, Depression screening and Bladder control screening. 02/11/2024 Anxiety (ICD-10 - F41.9) 02/11/2024 Panic attacks (ICD-10 - F41.0) Will stop the lorazepam and try hydroxyzine. 10/23/2023 Tobacco use disorder (ICD-10 - F17.200) 10/23/2023 Chronic cough (ICD-10 - R05.3) Patient continues to smoke. Will start back on trelegy and get a CXR and PFT's. 12/02/2023 Restless leg syndrome (ICD-10 - G25.81) 02/11/2024 Abscess (ICD-10 - L02.91) 06/02/2024 Rheumatoid arthritis, involving unspecified site, unspecified whether rheumatoid factor present (ICD-10 - M06.9) 03/03/2024 Panic attacks (ICD-10 - F41.0) 08/12/2024 BMI 24.0-24.9, adult (ICD-10 - Z68.24) 09/02/2024 Conjunctivitis of right eye, unspecified conjunctivitis type (ICD-10 - H10.9) 06/02/2024 Anxiety (ICD-10 - F41.9) 09/02/2024 Allergic rhinitis, unspecified seasonality, unspecified trigger (ICD-10 - J30.9) 06/02/2024 Renal insufficiency (ICD-10 - N28.9) 09/02/2024 BMI 24.0-24.9, adult (ICD-10 - Z68.24) 06/02/2024 Chronic bronchitis (ICD-10 - J42) 06/02/2024 Panic attacks (ICD-10 - F41.0) 06/02/2024 Tobacco use disorder (ICD-10 - F17.200) 06/02/2024 Restless leg syndrome (ICD-10 - G25.81) 06/02/2024 Osteoarthritis of multiple joints, unspecified osteoarthritis type (ICD-10 - M15.9) 06/02/2024 Hyperkalemia (ICD-10 - E87.5) 06/02/2024 Mixed hyperlipidemia (ICD-10 - E78.2) 06/02/2024 Colon cancer screening (ICD-10 - Z12.11) 06/02/2024 BMI 26.0-26.9,adult (ICD-10 - Z68.26) Plan Of Treatment Pending Test Test Name Order Date CT Scan : Chest, low dose 06/02/2024 Next Appt Details Provider Name:Danette Louie Lakisha marie, 12/01/2024 09:00:00 AM, [address] [facility], [address], [place], [place], [id number], Insurance Providers Payer Name Payer Address Payer Phone Subscriber Number Group Number Insured Name Patient Relationship to Insured Coverage Start Date Coverage End Date [employer] (MEDICAR E) [address] [address] [place] [address] [id number] Whitney Stafford Self - patient is the insured Medications Administered Medication Instructions Date of Administration Dosage Notes Depo- Medrol 40 mg/ml 03/30/2020 1.5 mL Depo- Medrol 40 mg/ml 09/14/2021 1.5 mL Depo- Medrol 40 mg/ml 06/27/2022 1 mL Depo- Medrol 40 mg/ml 08/01/2023 1 mL Dexamethasone 07/30/2022 1 mL Medical (General) History Medical History History ICD Code Acid Reflux Arthritis Rheumatoid Arthritis COPD Tobacco addiction Surgical History Surgery Date(Month/Year)
== END 2024-10-20 23:59 | disposition home or self-care (01) ==
LOC: RAD 07:25
PROVIDERS: PCP Family Medicine; Visit Provider Physician Assistant
DX: J43.9 Emphysema, unspecified (principal); J98.4 Other disorders of lung; R91.8 Other nonspecific abnormal finding of lung field; K44.9 Diaphragmatic hernia without obstruction or gangrene; K80.20 Calculus of gallbladder without cholecystitis without obstruction; Z87.891 Personal history of nicotine dependence
CPT/HCPCS: 71271

== ENCOUNTER 2024-12-20 07:12 | Outpatient (CLI) | payer MEDICARE, SELFPAY ==
--- OUTSIDE RECORDS SUMMARY | 2024-06-30 05:00 | XMS_ITS ---
Author Organization [facility] Address [address] [place] [id number] Care Team Providers Care Grape Cutter Name Role Phone Logan Osuna Primary Care Provider SahilDanette dickens Unavailable [phone] Allergies No Known Allergies Results Component Value Reference Range Notes Ultrasound : Breast, right Reviewed date:07/16/2024 04:36:54 PM Interpretation: Performing Lab: Notes/Report: Ultrasound : Breast, right Reviewed date:07/16/2024 04:36:54 PM Interpretation: Performing Lab: Notes/Report: REASON FOR VISIT lump in breast Medications Medication SIG (Take, Route, Frequency, Duration) Notes Start Date End Date Status Dioni Ellipta 100-62.5-25 MCG/ACT 1 puff Inhalation Once a day 10/23/2023 Not-Taking rOPINIRole HCl 0.5 MG 1 tablet Orally On ce a day; Duration: 90 days Active sulfaSALAzine 500 MG 3 tablet orally BID Active CeleBREX 200 MG 1 cap(s) orally once a day Active Omeprazole 40 MG 1 cap(s) orally once a day; Duration: 30 days Active Paxil 20 MG 1 tablet in the morning Orally Once a day; Duration: 90 days Active hydrOXYzine HCl 25 MG 1 tablet as needed Orally four times a day as needed Active Albuterol Sulfate HFA 108 (90 Base) MCG/ACT 2 puff(s) inhaled every 6 hours Active Vital Signs Blood pressure systolic 152 mm Hg 07/01/19 25 Blood pressure diastolic 90 mm Hg 025 Heart Rate 83 /min 06/30/2024 Height 64 in 06/30/2024 Weight 148.4 lbs 06/30/2024 BMI 25.47 kg/m2 06/30/2024 Encounters Encounter Location Date Provider Diagnosis [facility] [address] [facility] [address] [place] [id number] 06/30/2024 Danette Henson Mass of upper outer quadrant of right breast N63.11 and Restless leg syndrome G25.81 Assessments Encounter Date Diagnosis (ICD Code) Assessment Notes Treatment Notes Treatment Clinical Notes Section Notes 06/30/2024 Mass of upper outer quadrant of right breast (ICD-10 - N63.11) 06/30/2024 Restless leg syndrome (ICD-10 - G25.81) Plan Of Treatment Medication Medication Name Sig Start Date Stop Date Notes rOPINIRole HCl 0.5 MG 1 tablet Orally On ce a day; Duration: 90 days Next Appt Details Follow Up: via phone to repo rt test results, Reason: Progress Notes * Brenda HUIMilanOB:1960 (64 yo F)Acc No.[id number]:06/30/2024 Progress Notes Patient: Whitney GONZALEZ Provider: MARICRUZ Mak :1960 A ge:63 Y S ex:Female Date:06/30/2024 Address:[address] [place] [address] [id number] Pcp:Logan Osuna Subjective: * Chief Complaints: * 1 . Lump in breast. * HPI: G YN: The patient is here today with c/o a lump in the right breast. Pt states she noticed a bruise last week and felt the lump. Pt denies any tenderness of the area. Pt states she needs a refill on Ropinerole sent to [facility]. 63 year old female presents with c/o breast complaints. * ROS: D ERMATOLOGY: no R candida. n o H moshe. G ASTROENTEROLOGY: no N ausea. n o V omiting. n o D iarrhea.? U ROLOGY: no D ifficulty urinating. n o B lood in urine. * Medical History: A maria del rosario Reflux, Arthritis , Rheumatoid Arthritis, COPD, Tobacco addiction. * Family History: F ather: alive. M other: alive. 2 brother(s) , 1 sister(s) . 1 son(s) . . * Social History: C URRENT TOBACCO USE S moking Status: Patient does smoke, packs per day: 1, number of cigarettes per day: 20, Since age of: 14, Smoking preference: cigarettes. C affeine: yes, frequency:. Exercise: no. Past smoking status: yes, PPD: 1 , years: 30 ,determination:. Alcohol: no. * Medications: T aking sulfaSALAzine 500 MG Tablet Delayed Release 3 tablet orally BID , Taking CeleBREX 200 MG Capsule 1 cap(s) orally once a day , Taking Paxil 20 MG Tablet 1 tablet in the morning Orally Once a day , Taking hydrOXYzine HCl 25 MG Tablet 1 tablet as needed Orally four times a day as needed , Taking Albuterol Sulfate HFA 108 (90 Base) MCG/ACT Aerosol Solution 2 puff(s) inhaled every 6 hours , Taking Omeprazole 40 MG Capsule Delayed Release 1 cap(s) orally once a day , Taking rOPINIRole HCl 0.5 MG Tablet TAKE 1 TABLET BY MOUTH 1 TO 3 HOURS BEFORE BEDTIME , Not-Taking Trelegy Ellipta 100-62.5-25 MCG/ACT Aerosol Powder Breath Activated 1 puff Inhalation Once a day , Medication List reviewed and reconciled with the patient * Allergies: N .K.D.A. Objective: * Vitals: W t:148.4, Temp:97.7, BP:152/90, HR:83, Nurse:RJ, Ht: 64, Repeat BP:130/82, BMI:25.47. * Examination: G eneral Examination: General Appearance: N AD. C hest: n ormal shape and expansion. H eart: R SR. L ungs: c lear to auscultation. S kin: right breast with mass in the upper outer quadrants, tender, ecchymosis present on the skin over the mass.? Assessment: * Assessment: 1. M ass of upper outer quadrant of right breast - N63.11 (Primary) 2 . R estless leg syndrome - G25.81 Plan: * Treatment: 2.?Restless leg syndrome? Refill rOPINIRole HCl Tablet, 0.5 MG, 1 tablet, Orally, Once a day, 90 days, 90 Tablet, Refills 3. ? * Procedure Codes: G 2211 Complex e/m visit add on, 3075F SYST BP GE 130 - 139MM HG, 3079F DIAST BP 80-89 MM HG * Follow Up: v ia phone to report test results * Images: Billing Information: * Visit Code: 15918 Office Visit, Est Pt., Level 3. * Procedure Codes: G2211 Complex e/m visit add on. 3075F SYST BP GE 130 - 139MM HG. 3079F DIAST BP 80-89 MM HG. 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
--- OUTSIDE RECORDS SUMMARY | 2024-08-12 07:15 | XMS_ITS ---
Author Organization [facility] Address [address] [facility] [address] [place] [id number] Care Team Providers Care Terminal Supervisor Name Role Phone Logan Osuna Primary Care Provider [phone] Jus Moreno Unavailable [phone] Allergies No Known Allergies REASON FOR VISIT [...] 08/12/2024 Encounters Encounter Location Date Provider Diagnosis Arm[place] [address] [facility] [address] [place] [id number] 08/12/2024 Jus Moreno Conjunctivitis of ri ght [...] * Jose Elias HUIOB:1960 (64 yo F)Acc No.[id number]:08/12/2024 Progress Notes Patient: Whitney GONZALEZ Provider: Rhonda Moreno M.D. :1960 A ge:63 Y S ex:Female Date:08/12/2024 Address:[address] [place] [address] [address], [place], [id number] Pcp:Logan Osuna Subjective: * Chief Complaints: * [...] pressure reading - R03.0 3 . B NE 24.0-24.9, adult - Z68.24 Plan: * Treatment: * Procedure Codes: G 2211 Complex e/m visit add on, 3077F SYST BP = 140 MM HG6 IT, 3080F DIAST BP = 90 MM HG, G8420 BMI<30 AND >=22 CALC & DOCU * Follow Up: 3 or 4 Weeks * Images: Billing Information: * Visit Code: 91716 Office Visit, Est Pt., Level 3. * Procedure Codes: G2211 Complex e/m visit add on. 3077F SYST BP = 140 MM HG6 IT. 3080F DIAST BP = 90 MM HG. G8420 BMI<30 AND >=22 CALC & DOCU. * Electronic signature of Ana Moreno MD on 12/20/2024 at 07:14 AM EDT Sign off status: Pending * Provider: Rhonda Moreno M.D. Date: 0 08/12/2024 Generated for Cecilio lee/Flip/Christsmitting on: 0 12/20/2024 [...]
--- OUTSIDE RECORDS SUMMARY | 2024-09-02 06:00 | XMS_ITS ---
Author Organization [facility] Address [address] [facility] [address] [place] [id number] Care Team Providers Care Business Banking Officer Name Role Phone Logan Osuna Primary Care Provider Jus Moreno Unavailable [phone] Allergies No Known Allergies REASON FOR VISIT 3 weeks Medications Medication SIG (Take, Route, Frequency, Duration) Notes Start Date End Date Status Omeprazole 40 mg TAKE ONE CAPSULE BY MOUTH ONCE A DAY; Duration: 30 Active Paxil 20 MG 1 tablet in the morn ing Orally Once a day; Duration: 90 days Active CeleBREX 200 MG 1 cap(s) orally once a day Active Albuterol Sulfate HFA 108 (90 Base) MCG/ACT 2 puff(s) inhaled every 6 hours Active hydrOXYzine HCl 25 MG 1 tablet as needed Orally four times a day as needed Active Cetirizine HCl 10 MG 1 tablet Orally Onc e a day; Duration: 90 days 09/02/2024 Active rOPINIRole HCl 0.5 MG 1 or 2 tablets Ora lly Two times a day Active sulfaSALAzine 500 MG 3 tablet orally BID Active Vital Signs Blood pressure systolic 124 mm Hg 09/03/19 25 Blood pressure diastolic 80 mm Hg 025 Heart Rate 84 /min 09/02/2024 Height 64 in 09/02/2024 Weight 143.4 lbs 09/02/2024 BMI 24.61 kg/m2 09/02/2024 Encounters Encounter Location Date Provider Diagnosis Dionne [address] [facility] [address] [place] [id number] 09/02/2024 Jus Moreno Elevated blood press ure reading R03.0 ; Restless leg syndrome G25.81 ; Conjunctivitis of right eye, unspecified conjunctivitis type H10.9 ; Allergic rhinitis, unspecified seasonality, unspecified trigger J30.9 and BMI 24.0-24.9, adult Z68.24 Assessments Encounter Date Diagnosis (ICD Code) Assessment Notes Treatment Notes Treatment Clinical Notes Section Notes 09/02/2024 Elevated blood pressure reading (ICD-10 - R03.0) BP normal now 09/02/2024 Restless leg syndrome (ICD-10 - G25.81) 09/02/2024 Conjunctivitis of right eye, unspecified conjunctivitis type (ICD-10 - H10.9) 09/02/2024 Allergic rhinitis, unspecified seasonality, unspecified trigger (ICD-10 - J30.9) 09/02/2024 BMI 24.0-24.9, adult (ICD-10 - Z68.24) Plan Of Treatment Medication Medication Name Sig Start Date Stop Date Notes Ofloxacin 0.3 % 1 drop Ophthalmic Four times a day 025 Cetirizine HCl 10 MG 1 tablet Orally Onc e a day; Duration: 90 days 09/02/2024 rOPINIRole HCl 0.5 MG 1 or 2 tablets Ora lly Two times a day Treatment Notes Assessment Notes Elevated blood pressure reading BP triston l now Next Appt Details Follow Up: as scheduled,and prn, Reason: Progress Notes * Jose Elias HUIOB:1960 (64 yo F)Acc No.[id number]:09/02/2024 Progress Notes Patient: Whitney GONZALEZ Provider: Rhonda Moreno M.D. :1960 A ge:63 Y S ex:Female Date:09/02/2024 [address] [id number] Pcp:Logan Osuna Subjective: * Chief Complaints: * 1 . 3 weeks. * HPI: O pthalmology: 63 year old female presents with c/o eye irritation T he pt is here for a follow-up on Conjunctivitis. Pt states she is doing better. C ardiology: c/o Blood Pressure Elevated T he pt is here for a follow up on high blood pressure. Pt states she mendez not check her BP at home. Denies : Chest Pain. D enies : Short of Breath. D enies : Dizziness. D enies : Palpitations. * ROS: D ERMATOLOGY: no R candida. [...] puff(s) inhaled every 6 hours , Taking rOPINIRole HCl 0.5 MG Tablet 1 tablet Orally Once a day , Taking Ofloxacin 0.3 % Solution 1 drop Ophthalmic Four times a day , Taking Omeprazole 40 mg Capsule Delayed Release TAKE ONE CAPSULE BY MOUTH ONCE A DAY , Medication List reviewed and reconciled with the patient * Allergies: N .K.D.A. Objective: * Vitals: W t: 143.4, Temp: 98.2, BP: 124/80, HR: 84, O2 Sat: 97% on RA, Nurse: RJ, Ht: 64, BMI:24.61. * Examination: G eneral Examination: General Appearance: N AD. H EENT: P ERRLA, no redness. H eart: R SR. L ungs: c lear to auscultation. E xtremities: n o leg edema. Assessment: * Assessment: 1. E levated blood pressure reading - R03.0 (Primary) 2 . R estless leg syndrome - G25.81 3 . C onjunctivitis of right eye, unspecified conjunctivitis type - H10.9 4 . A llergic rhinitis, unspecified seasonality, unspecified trigger - J30.9 5 . B [place] 24.0-24.9, adult - Z68.24 Plan: * Treatment: 2. R estless leg syndrome Refill rOPINIRole HCl Tablet, 0.5 MG, 1 or 2 tablets, Orally, Two times a day, 180, Refills 1. 3. C onjunctivitis of right eye, unspecified conjunctivitis type Stop Ofloxacin Solution, 0.3 %, 1 drop, Ophthalmic, Four times a day. 4. A llergic rhinitis, unspecified seasonality, unspecified trigger Start Cetirizine HCl Tablet, 10 MG, 1 tablet, Orally, Once a day, 90 days, 90 Tablet, Refills 1.? * Procedure Codes: G 2211 Complex e/m visit add on, 3074F SYST BP LT 130 MM HG, 3079F DIAST BP 80-89 MM HG, G8420 BMI<30 AND >=22 CALC & DOCU * Follow Up: a s scheduled,and prn * Images: Billing Information: * Visit Code: 51693 Office Visit, Est Pt., Level 4. * Procedure Codes: G2211 Complex e/m visit add on. 3074F SYST BP LT 130 MM HG. 3079F DIAST BP 80-89 MM HG. G8420 BMI<30 AND >=22 CALC & DOCU. * Electronic signature of Ana Moreno MD on 12/20/2024 at 07:15 AM EDT Sign off status: Pending * Provider: Rhonda Moreno M.D. Date: 0 09/02/2024 Generated for Cecilio lee/Flip/Mikelitting on: 0 12/20/2024 07:15 AM EDT History and Physical Notes * HPI (History of Present Illness) Category Sub-Category Detail Notes Category Not es Cardiology Short of Breath Chest Pain Palpitations Dizziness Blood Pressure Elevated The pt is here f or a follow up on high blood pressure. Pt states she mendez not check her BP at home Opthalmology eye irritation The pt is here f or a follow-up on Conjunctivitis. Pt states she is doing better Examination Category Sub-Category Detail Notes Category Not es General Examination HEENT: PERRLA, no redness Heart: RSR Lungs: clear to auscultatio n Extremities: no leg edema General Appearance: NAD
--- OUTSIDE RECORDS SUMMARY | 2024-10-12 09:45 | XMS_ITS ---
Author Organization [facility] Address [address] [facility] [address] [place] [id number] Care Team Providers Care Oncology Social Work Name Role Phone Logan Osuna Primary Care Provider [phone] Results Component Value Reference Range Notes P-CBC With Platelet No Diffe rential Reviewed date:10/14/2024 04:24:45 PM Interpretation:Normal Performing Lab: Notes/Report: CLIA: [id number] Morgan Sweeney MD, Apparel Rental Clerk [address] [place] [address] , [place] [address] Test performed by [facility] WBC 6.5 3.8-11.5 K/uL Red Blood Cell Count (RBC) 4.50 3.60-5.30 M/mm 3 Hemoglobin (Hgb) 12.6 11.5-15.5 gm/dL Hematocrit (HCT) 41.1 35.2-46.4 % MCV 91.3 79.0-99.0 fL MCH 28.0 26.9-35.0 pg MCHC 30.7 30.4-34.8 g/dL RDW 49.8 38.6-53.8 fL Platelet Count 267 137-397 K/cumm P-CBC With Platelet And Diff erential Reviewed date:10/14/2024 04:23:21 PM Interpretation: Performing Lab: Notes/Report: Manual Differential Review/C ount Reviewed date:10/14/2024 04:24:45 PM Interpretation:Normal Performing Lab: Notes/Report: Test performed by [facility] [address] [place] [address] , [address], [place] [address] Morgan Sweeney MD, Apparel Rental Clerk CLIA: [id number] Neutrophils-Manual 62 41-77 % Lymphocytes Manual 28 14-48 % Monocytes Manual 6 4-13 % Eosinophils Manual 3 0-8 % Basophils Manual 1 0-1 % Polychromasia Moderate Poikilocytosis Moderate Verito Cell Few Ovalocytes Few Tear Drop Cells Few Platelet Slide Review Normal REASON FOR VISIT blood work Encounters Encounter Location Date Provider Diagnosis [facility] [address] [facility] [address] [facility] [address] [place] [id number] 10/12/2024 Logan Osuna 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 :1960 A ge:63 Y S ex:Female Date:10/12/2024 Address:[address] [place], [place] [id number] Subjective: * Chief Complaints: * 1 . Blood work. * Medical History: Objective: * Vitals: Assessment: * Assessment: 1. R heumatoid arthritis involving multiple sites with positive rheumatoid factor - M05.79 (Primary) 2 . 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 Plan: * Treatment: 2.?Immunodeficiency due to drugs?LAB: P-CBC With Platelet And Differential (Collection Date & Time - 10/14/2024)* see duplicate order * Labs: * L ab: P-CBC With Platelet No Differential (Collection Date & Time - 10/12/2024 01:20 PM) N ormal Value Reference Range H ematocrit (HCT) 41.1 35.2-46.4 - % * H emoglobin (Hgb) 12.6 11.5-15.5 - gm/dL * M CH 28.0 26.9-35.0 - pg * M CHC 30.7 30.4-34.8 - g/dL * M CV 91.3 79.0-99.0 - fL * P latelet Count 267 137-397 - K/cumm * R ed Blood Cell Count (RBC) 4.50 3.60-5.30 - M/ mm3 * R DW 49.8 38.6-53.8 - fL * W BC 6.5 3.8-11.5 - K/uL * [facility] IT support 10/13/2024 04:35:04 : This order was created by the Interface. Logan Osuna 10/14/2024 04:17:43 PM EDT > reviewed. Please fax results to professor of biblical studies who ordered the lab Tasneem Taylor 10/14/2024 04:24:39 PM EDT >results faxed ?Lab: Manual Differential Review/Count (Collection Date & Time - 10/12/2024 01:20 PM)?Normal* Value Reference Range B asophils Manual 1 0-1 - % * B urr Cell Few - * E osinophils Manual 3 0-8 - % * L ymphocytes Manual 28 14-48 - % * M onocytes Manual 6 4-13 - % * O valocytes Few - * P latelet Slide Review Normal - * P oikilocytosis Moderate - * P olychromasia Moderate - * N eutrophils-Manual 62 41-77 - % * T ear Drop Cells Few - * [facility], IT support 10/13/2024 04:35:05 : This order was created by the Interface. Logan Osuna 10/14/2024 04:17:43 PM EDT > reviewed. Please fax results to professor of biblical studies who ordered the lab Tasneem Taylor 10/14/2024 04:24:39 PM EDT >results faxed * Images: Billing Information: * Visit Code: * Procedure Codes: * Electronic signature of Logan Osuna MD on 12/20/2024 at 07:14 AM EDT Sign off status: Pending * Provider: Logan Osuna M.D. Date: 0 10/12/2024 Generated for Cecilio lee/Flip/Rodney on: 0 12/20/2024 07:14 AM EDT
--- OUTSIDE RECORDS SUMMARY | 2024-12-01 05:00 | XMS_ITS ---
Author Organization [facility] Address [address] [facility] [address] [place] [id number] Care Team Providers Care Entrepreneur Name Role Phone Logan Osuna Primary Care Provider [phone] Danette Henson Unavailable [phone] Allergies No Known Allergies Results Component Value [...] Interpretation: Performing Lab: Notes/Report: Test performed by [facility] [address] [place] [address] , [address], [place] [address] Morgan Sweeney MD, Room Service Manager CLIA: [id number] Sodium 140 135-145 mmol/L Potassium 4.7 3.5-5.3 [...] <0.2 <0.2-1.2 mg/dL A/G Ratio 1.6 1.1-2.5 S-Y-Xezqeasc Protein (CRP), High Sensitivity Reviewed date:12/16/2024 01:12:49 PM Interpretation: Performing Lab: Notes/Report: Test performed by [facility] [address] [place], [place] [address] [place] [address], [place] [address] Morgan Sweeney MD, Room Service Manager CLIA: [id number] C-Reactive Protein (CRP), Hi gh Sensitivity 2.40 [...] Interpretation: Performing Lab: Notes/Report: Test performed by [facility] [address] [place], [place] [address] [address], [place] [address] Morgan Sweeney MD, Room Service Manager CLIA: [id number] Erythrocyte Sedimentation Ra te (ESR), Automated 39 <31 mm/hr P-Lipid Panel Reviewed date:12/16/2024 01:12:49 PM Interpretation: Performing Lab: Notes/Report: Test performed by [facility] [address] [facility] [address], [place] [address] Morgan Sweeney MD, Room Service Manager CLIA: [id number] Cholesterol 189 <200 mg/dL Triglycerides 212 <150 [...] Interpretation: Performing Lab: Notes/Report: Test performed by [facility] , [facility], [place] [address] Morgan Sweeney MD, Room Service Manager CLIA: [id number] TSH reflex to FT4 2.01 0.43-5.25 mU/L Reason For Referral Diagnosis 1 Gallstones (K80.20) [facility] Referring Provider First Name Danette Referring Provider Last Name Natividad Referring Provider Speciality Physician Installation And Service Technician Referred Provider Specialty General Surg vikash General [...] Status W/U Status Risk Notes Problem Gallstones (292071753) Gallstones (K80.20) Active confirmed Vital Signs Blood pressure systolic 120 mm Hg 12/02/19 Blood pressure diastolic 78 mm Hg 025 Heart Rate 82 /min 12/01/2024 Height 64 in 12/01/2024 Weight 146.2 lbs 12/01/2024 BMI 25.09 kg/m2 12/01/2024 Encounters Encounter Location Date Provider Diagnosis [facility] [address], [place] [id number] 12/01/2024 Danette Henson Gallstones K80.20 ; GERD [...] * Jose Elias HUIOB:1960 (64 yo F)Acc No.[id number]:12/01/2024 Progress Notes Patient: Whitney GONZALEZ Provider: MARICRUZ Mak :1960 A ge:64 Y S ex:Female Date:12/01/2024 Address:[address] [place] [address] [place] [id number] Pcp:Logan Osuna Subjective: * Chief Complaints: * [...] M ixed hyperlipidemia - E78.2? 12. B NE 25.0-25.9,adult - Z68.25 Plan: * Treatment: 2. R heumatoid arthritis, involving unspecified site, unspecified whether rheumatoid factor present L AB: E-Z-Xzwyuaut Protein (CRP), High Sensitivity (Collection Date & [...] p latlet 253 100 - 400 * Nisa Koo 12/01/2024 1 2:41:23 PM EDT > [...] G 2211 Complex e/[place], [address] CBC WITH AUTO DIFF, 44462 VENIPUNCT, ROUTINE*, G8420 BMI<30 AND >=22 CALC & DOCU, G8783 BP SCR PRFRM RCMDD DEFIND SCR INTVL, G8752 MOST RECENT SYSTOLIC BP < 140MM HG, G8754 MOST RECENT DIASTOLIC BP < 90MM HG * Follow Up: v ia phone to report test results * Images: Billing Information: * Visit Code: 57771 Office Visit, Est Pt., Level 4. * Procedure Codes: G2211 Complex e/[place]. [address] CBC WITH AUTO DIFF. 76977 VENIPUNCT, ROUTINE*. G8420 BMI<30 AND >=22 CALC & DOCU. G8783 BP SCR PRFRM RCMDD DEFIND SCR INTVL. G8752 MOST RECENT SYSTOLIC BP < 140MM HG. G8754 MOST RECENT DIASTOLIC BP < 90MM HG. * Electronic signature of MARICRUZ Nickerson on 12/20/2024 at 07:14 AM EDT Sign off status: Pending * Provider: MARICRUZ Mak Date: 0 12/01/2024 Generated for Cecilio ng/Fataylorg/eTransmitting on: 0 12/20/2024 07:14 AM EDT History [...]
--- OUTSIDE RECORDS SUMMARY | 2024-12-20 07:14 | XMS_ITS | Encounter Summary ---
Author Organization [facility] Address [address] [place] [address] Care Team Providers Care Heel Seat Filler Name Role Phone Damon Osuna MD Primary Care Provider Encounter Details Date Type Department Care Team (Late st Contact Info) Description 10/13/2024 Telephone [facility] RHEUMATOLOGY [address] [phone] Jeffrey Faustin MD [address] [phone] Social History Tobacco Use Types Packs/Day Years Used Date Smoking Tobacco: Every Day Cigarettes Smokeless Tobacco: Never Alcohol Use Standard Drinks/Week Comments Never 0 (1 standard drink = 0.6 oz pur e alcohol) Comments Unknown Sex and Gender Information Value Date Recorded Sex Assigned at Not on file Legal Sex Female 8:46 AM EDT Gender Identity Not on file Sexual Orientation Not on file documented as of this encounter Miscellaneous Notes * Telephone Encounter - Nguyen Wilson MA - 10/22/2024 8:50 AM EDT I spoke with Charlene @ PCP's office. The last thing they have is a CBC from 10/12/24 and prior to that was in May. -KENTRELL Moses * Telephone Encounter - Jeffrey Faustin MD - 10/13/2024 2:42 PM EDT -Check with PCP if any other labs done 11/05 beyond CBC. -My lab order includes CMP ESR CRP, but I don't see these results with moth recent labs documented in this encounter Plan of Treatment Upcoming Encounters Date Type Department Care Team (Late st Contact Info) Description 03/21/2025 1:30 PM EST Appointment [facility] RHEUMATOLOGY DEXA [address] [address] 03/21/2025 2:00 PM EST Office Visit [facility] RHEUMATOLOGY [address] [address] Jeffrey Faustin MD [address] [address] documented as of this encounter Visit Diagnoses Not on filedocumented in this encounter Care Teams Heel Seat Filler Relationship Specialty Start Date End Date Damon Osuna MD [address] [facility] [address] [place] [address] PCP - General Family Medicine 10/29/23 documented as of this encounter
--- OUTSIDE RECORDS SUMMARY | 2024-12-20 07:14 | XMS_ITS | Patient Health Record ---
[facility] Address [address] [place] [id number] Care Team Providers Care Meat Counter Clerk Name Role Phone Logan Osuna Primary Care Provider Josh Jus Unavailable [phone] SahilDanette dickens Unavailable [phone] Allergies No Known Allergies Results Component Value Reference Range Notes Ultrasound : Breast, right Reviewed date:07/16/2024 04:36:54 PM Interpretation: Performing Lab: Notes/Report: Ultrasound : Breast, right Reviewed date:07/16/2024 04:36:54 PM Interpretation: Performing Lab: Notes/Report: P-CBC With Platelet No Diffe rential Reviewed date:10/14/2024 04:24:45 PM Interpretation:Normal Performing Lab: Notes/Report: Test performed by [facility], [facility] [address] [place] [address] , [address], [place] [address] Morgan Sweeney MD, Prosthetic Aide CLIA: [id number] WBC 6.5 3.8-11.5 K/uL Red Blood Cell [...] Interpretation:Normal Performing Lab: Notes/Report: Test performed by [facility] [address] [place] [address] , [address], [place] [address] Morgan Sweeney MD, Prosthetic Aide CLIA: [id number] Neutrophils-Manual 62 41-77 % Lymphocytes Manual 28 14-48 % Monocytes Manual 6 4-13 % Eosinophils Manual 3 0-8 % Basophils Manual 1 0-1 % Polychromasia Moderate Poikilocytosis Moderate Verito Cell Few Ovalocytes Few Tear Drop Cells Few Platelet Slide Review Normal CT Scan : Chest, low dose Reviewed date:11/17/2024 02:43:23 PM Interpretation:Large Gallstone, 1 Year F/U Performing Lab: Notes/Report: Large Gallstone, 1 Year F/U P-TSH reflex to FT4 Reviewed date:06/03/2024 08:46:12 AM Interpretation: Performing Lab: Notes/Report: CLIA: [id number] Morgan Sweeney MD, Prosthetic Aide [address] [place] [address] , [address], [place] [address] Test performed by [facility] TSH reflex to FT4 2.07 0.43-5.25 mU/L P-Magnesium Reviewed date:06/03/2024 08:46:12 AM Interpretation: Performing Lab: Notes/Report: Test performed by [facility] [address] [place] [address] [address], [address], [place] [address] Morgan Sweeney MD, Prosthetic Aide CLIA: [id number] Magnesium 2.0 1.6-2.4 mg/dL P-Lipid Panel Reviewed date:06/03/2024 08:46:12 AM Interpretation: Performing Lab: Notes/Report: Test performed by [facility] [address] [place] [address] [address], [address], [place] [address] Morgan Sweeney MD, Prosthetic Aide CLIA: [id number] Cholesterol 183 <200 mg/dL Triglycerides 118 <150 [...] Results: 109 Units: mg/dL % Change: -15% P-Sed Rate (ESR) Reviewed date:06/03/2024 08:46:12 AM Interpretation: Performing Lab: Notes/Report: Test performed by [facility], [address] , [address], [place] [address] Morgan Sweeney MD, Prosthetic Aide CLIA: [id number] Erythrocyte Sedimentation Rate (ESR), Automated 45 <31 mm/hr Y-I-Jnxhfcic Protein (CRP) Reviewed date:06/03/2024 08:46:12 AM Interpretation: Performing Lab: Notes/Report: Test performed by [facility] [address] [place] [address] , [address], [place] [address] Morgan Sweeney MD, Prosthetic Aide CLIA: [id number] C-Reactive Protein (CRP) 0.23 <0.50 mg/dL P-Comprehensive Metabolic Pa asif (CMP) Reviewed date:06/03/2024 08:46:12 AM Interpretation: Performing Lab: Notes/Report: Test performed by [facility] [address] [place] [address] , [address], [place] [address] Morgan Sweeney MD, Prosthetic Aide CLIA: [id number] Sodium 139 135-145 mmol/L Potassium 4.6 3.5-5.3 [...] 0.3 <0.2-1.2 mg/dL A/G Ratio 1.7 1.1-2.5 Cologuard Reviewed date:07/06/2024 02:00:30 PM Interpretation:Negative Performing Lab: Notes/Report: Negative Cologuard negative CBC Venipuncture (in house) Reviewed date:06/02/2024 11:24:11 [...] - 38 platlet 244 100 - 400 CBC Venipuncture (in house) Reviewed date:12/01/2024 01:09:33 [...] Interpretation: Performing Lab: Notes/Report: Test performed by [facility] [address] [place] [address] , [address], [place] [address] Morgan Sweeney MD, Prosthetic Aide CLIA: [id number] Sodium 140 135-145 mmol/L Potassium 4.7 3.5-5.3 [...] <0.2 <0.2-1.2 mg/dL A/G Ratio 1.6 1.1-2.5 S-U-Iiggpumi Protein (CRP), High Sensitivity Reviewed date:12/16/2024 01:12:49 PM Interpretation: Performing Lab: Notes/Report: Test performed by [facility] [address] [place] [address] , [address], [place] [address] Morgan Sweeney MD, Prosthetic Aide CLIA: [id number] C-Reactive Protein (CRP), High Sensitivity 2.40 <3.01 mg/L For non-specific CRP [...] Interpretation: Performing Lab: Notes/Report: Test performed by [facility] [address] [place], [place] [address] , [address], [place] [address] Morgan Sweeney MD, Prosthetic Aide CLIA: [id number] Erythrocyte Sedimentation Rate (ESR), Automated 39 <31 mm/hr P-Lipid Panel Reviewed date:12/16/2024 01:12:49 PM Interpretation: Performing Lab: Notes/Report: Test performed by [facility] [address] [place] [address] , [address], [place] [address] Morgan Sweeney MD, Prosthetic Aide CLIA: [id number] Cholesterol 189 <200 mg/dL Triglycerides 212 <150 [...] Interpretation: Performing Lab: Notes/Report: Test performed by [facility] [address] [facility] , [place] [address] Morgan Sweeney MD, Prosthetic Aide CLIA: [id number] TSH reflex to FT4 2.01 0.43-5.25 mU/L P-Sed Rate (ESR) Reviewed date:06/15/2024 08:20:38 AM Interpretation: Performing Lab: Notes/Report: Test performed by [facility] [address] [place] [address] , [address], [place] [address] Morgan Sweeney MD, Prosthetic Aide CLIA: [id number] Erythrocyte Sedimentation Rate (ESR), Automated 30 <31 mm/hr CBC Fingerstick (in house) Reviewed date:03/03/2024 01:12:01 [...] - 38 plat 199 100 - 400 Reason For Referral Diagnosis 1 Gallstones (K80.20) Referral Organization [facility] Referring Provider First Name Danette Referring Provider Last Name Natividad Referring Provider Speciality Physician Process Area Supervisor Referred Provider Specialty General Surg vikash General Notes Danette Henson 09:51:27 AM >Pt needs an appt with Ruby Lowe Brynn 12/01/2024 10:51:29 AM > 12/09/2024 at 09:15am; patient informed Referral Priority Routine Medications Medication SIG (Take, Route, Frequency, Duration) Notes Start Date End Date Status Cetirizine HCl 10 MG 1 tablet Orally Onc e a day; Duration: 90 days 09/02/2024 Active Omeprazole 40 mg 1 capsule orally onc e a day; Duration: 30 days Active Albuterol Sulfate HFA 108 (90 Base) MCG/ACT 2 puff(s) inhaled every 6 hours Active PARoxetine HCl 20 mg 1 tablet in the mor zeinab orally once a day; Duration: 90 days Active hydrOXYzine HCl 25 MG 1 tablet as needed Orally four times a day as needed Active rOPINIRole HCl 0.5 MG 1 or 2 tablets Ora lly Two times a day Active CeleBREX 200 MG 1 cap(s) orally once a day Active sulfaSALAzine 500 MG 3 tablet orally BID Active Immunizations Vaccine Route Administration Date Status Comme nts Tetanus Tdap-Adacel (over 7yrs) IM Intramuscular 2014 Administered Problems Problem Type SNOMED Code ICD Code Onset Dates Problem Status W/U Status Risk Notes Problem Gastroesophageal reflux disease (789773948) GERD (gastroesophageal reflux disease) (K21.9) Active confirmed Problem Anxiety (01946085) Anxiety (F41.9) Active confi rmed Problem Sciatic nerve lesion (770842401) Piriformis syndrome of left side (G57.02) Active confirmed Problem Restless legs syndrome (42644879) Restless leg syndrome (G25.81) Active confirmed Problem Acute exacerbation of chronic obstructive airways disease (941294891) COPD exacerbation (J44.1) Active confirmed Problem Mixed hyperlipidemia (177693252) Mixed hyperlipidemia (E78.2) Active confirmed Problem Disorder of bone (36998838) Other specified disorders of bone density and structure, unspecified site (M85.80) Active confirmed Problem Sciatica (61314493) Sciatica of right side (M54.31) Active confirmed Problem Panic disorder (370889141) Panic attacks (F41.0) Active confirmed Problem Tension headache (073761050) Tension headache (G44.209) Active confirmed Problem Chronic bronchitis (52881971) Chronic bronchitis (J42) Active confirmed Problem Osteoarthritis of multiple joints (738753085) Osteoarthritis of multiple joints, unspecified osteoarthritis type (M15.9) Active confirmed Problem Rheumatoid arthritis (04732800) Rheumatoid arthritis involving multiple sites with positive rheumatoid factor (M05.79) Active confirmed Problem Sciatica (33096949) Acute right- sided low back pain with right-sided sciatica (M54.41) Active confirmed Problem Tobacco use (695210945) Tobacco use disorder (F17.200) Active confirmed Problem Rheumatoid arthritis (86320916) Rheumatoid arthritis flare (M06.9) Active confirmed Problem Gallstones (023697967) Gallstones (K80.20) Active confirmed Problem Allergic rhinitis (74636146) Allergic rhinitis, unspecified seasonality, unspecified trigger (J30.9) Active confirmed Problem Inflammation of joint of shoulder region (900012539) 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) Active confirmed Problem 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) Active confirmed Problem Body mass index 25-29 - overweight (603703644) Body mass index [BMI] 27.0-27.9, adult (Z68.27) Active confirmed Problem Gastroesophageal reflux disease (949792898) Gastroesophageal reflux disease, unspecified whether esophagitis present (K21.9) Active confirmed Problem Rheumatoid arthritis (31180072) Rheumatoid arthritis, involving unspecified site, unspecified whether rheumatoid factor present (M06.9) Active confirmed Vital Signs Heart Rate 82 /min 12/01/2024 Blood pressure diastolic 78 mm Hg 12/01/2024 Height 64 in 12/01/2024 Blood pressure systolic 120 mm Hg 12/01/2024 Weight 146.2 lbs 12/01/2024 BMI 25.09 kg/m2 12/01/2024 Encounters Encounter Location Date Provider Diagnosis [facility] [address] [id number] 02/11/2024 Danette Henson Anxiety F41.9 ; Dulce c attacks F41.0 and Abscess L02.91 [facility] [address] [place] [address] [id number] 03/03/2024 Danette Henson Bronchitis J40 ; Anx iety F41.9 and Panic attacks F41.0 [facility] [address] [place] [address] [id number] 04/30/2024 R David Osuna 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 [id number] 06/02/2024 Danette Henson Adult general medica l [...] hyperlipidemia E78.2 ; Colon cancer screening Z12.11 ; BMI 26.0-26.9,adult Z68.26 ; Encounter for screening for malignant neoplasm of respiratory organs Z12.2 and Personal history of nicotine dependence Z87.891 [facility] [address] [place] [id number] 06/30/2024 Danette Crowdy Mass of upper outer quadrant of right breast N63.11 and Restless leg syndrome G25.81 [facility] [address] [place] [id number] 08/12/2024 Jus Longview Conjunctivitis of ri ght eye, unspecified conjunctivitis type H10.9 ; Elevated blood pressure reading R03.0 and BMI 24.0-24.9, adult Z68.24 [facility] [address] [place] [id number] 09/02/2024 Jus [place] Elevated blood press ure reading R03.0 ; Restless leg syndrome G25.81 ; Conjunctivitis of right eye, unspecified conjunctivitis type H10.9 ; Allergic rhinitis, unspecified seasonality, unspecified trigger J30.9 and BMI 24.0-24.9, adult Z68.24 [facility] [address] [place] [id number] 10/12/2024 Logan Osuna 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 and 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 [facility] [address] [place] [id number] 12/01/2024 Danette Crowdy Gallstones K80.20 ; GERD (gastroesophageal reflux disease) K21.9 ; Rheumatoid arthritis, involving unspecified site, unspecified whether rheumatoid factor present M06.9 ; Anxiety F41.9 ; Renal insufficiency N28.9 ; Chronic bronchitis J42 ; Panic attacks F41.0 ; Tobacco use disorder F17.200 ; Restless leg syndrome G25.81 ; Osteoarthritis of multiple joints, unspecified osteoarthritis type M15.9 ; Mixed hyperlipidemia E78.2 and BMI 25.0-25.9,adult Z68.25 [facility] [address] [place] [id number] 05/07/2024 R David Thao [facility] [address] [place], [place] [id number] 06/03/2024 Danette Henson [facility] [address] [place], [place] [id number] 07/16/2024 Danette Henson [facility] [address] [place], [place] [id number] 11/05/2024 Danette Henson [facility] [address] [place] [id number] 12/14/2024 R David Clintont [facility] [address] [place], [place] [id number] 12/16/2024 Danette Henson Assessments Encounter Date Diagnosis (ICD Code) Assessment Notes Treatment Notes Treatment Clinical Notes Section Notes 04/30/2024 Rheumatoid arthritis involving multiple sites with positive rheumatoid factor (ICD-10 - M05.79) 06/30/2024 Restless leg syndrome (ICD-10 - G25.81) 06/30/2024 Mass of upper outer quadrant of right breast (ICD-10 - N63.11) 08/12/2024 Conjunctivitis of right eye, unspecified conjunctivitis type (ICD-10 - H10.9) 08/12/2024 Elevated blood pressure reading (ICD-10 - R03.0) 02/11/2024 Anxiety (ICD-10 - F41.9) 02/11/2024 Panic attacks (ICD-10 - F41.0) Will stop the lorazepam and try hydroxyzine. 03/03/2024 Anxiety (ICD-10 - F41.9) 03/03/2024 Bronchitis (ICD-10 - J40) 12/01/2024 GERD (gastroesophageal reflux disease) (ICD-10 - K21.9) 10/12/2024 Rheumatoid arthritis involving multiple sites with positive rheumatoid factor (ICD-10 - M05.79) 10/12/2024 Immunodeficiency due to drugs (ICD-10 - D84.821) 09/02/2024 Restless leg syndrome (ICD-10 - G25.81) 12/01/2024 Gallstones (ICD-10 - K80.20) 09/02/2024 Elevated blood pressure reading (ICD-10 - R03.0) BP normal now 06/02/2024 GERD (gastroesophageal reflux disease) (ICD-10 - K21.9) 06/02/2024 Adult general medical examination (ICD-10 - Z00.00) Patient instructed to return to office Annually for Annual Wellness Visits to include annual screenings of Pain assessment, Functional Ability assessment, Cognitive Ability assessment, Fall Risk assessment, Depression screening and Bladder control screening. 06/02/2024 Rheumatoid arthritis, involving unspecified site, unspecified whether rheumatoid factor present (ICD-10 - M06.9) 12/01/2024 Rheumatoid arthritis, involving unspecified site, unspecified whether rheumatoid factor present (ICD-10 - M06.9) Patient has bone density done at Rheumatology office. 09/02/2024 Conjunctivitis of right eye, unspecified conjunctivitis type (ICD-10 - H10.9) 03/03/2024 Panic attacks (ICD-10 - F41.0) 02/11/2024 Abscess (ICD-10 - L02.91) 08/12/2024 BMI 24.0-24.9, adult (ICD-10 - Z68.24) 12/01/2024 Anxiety (ICD-10 - F41.9) 09/02/2024 Allergic rhinitis, unspecified seasonality, unspecified trigger (ICD-10 - J30.9) 06/02/2024 Anxiety (ICD-10 - F41.9) 06/02/2024 Renal insufficiency (ICD-10 - N28.9) 12/01/2024 Renal insufficiency (ICD-10 - N28.9) 09/02/2024 BMI 24.0-24.9, adult (ICD-10 - Z68.24) 12/01/2024 Chronic bronchitis (ICD-10 - J42) 06/02/2024 Chronic bronchitis (ICD-10 - J42) 06/02/2024 Panic attacks (ICD-10 - F41.0) 12/01/2024 Panic attacks (ICD-10 - F41.0) 06/02/2024 Tobacco use disorder (ICD-10 - F17.200) 12/01/2024 Tobacco use disorder (ICD-10 - F17.200) 06/02/2024 Restless leg syndrome (ICD-10 - G25.81) 12/01/2024 Restless leg syndrome (ICD-10 - G25.81) 06/02/2024 Osteoarthritis of multiple joints, unspecified osteoarthritis type (ICD-10 - M15.9) 12/01/2024 Osteoarthritis of multiple joints, unspecified osteoarthritis type (ICD-10 - M15.9) 06/02/2024 Hyperkalemia (ICD-10 - E87.5) 12/01/2024 Mixed hyperlipidemia (ICD-10 - E78.2) 06/02/2024 Mixed hyperlipidemia (ICD-10 - E78.2) 12/01/2024 BMI 25.0-25.9,adult (ICD-10 - Z68.25) 06/02/2024 Colon cancer screening (ICD-10 - Z12.11) 06/02/2024 BMI 26.0-26.9,adult (ICD-10 - Z68.26) 06/02/2024 Encounter for screening for malignant neoplasm of respiratory organs (ICD-10 - Z12.2) 06/02/2024 Personal history of nicotine dependence (ICD-10 - Z87.891) Plan Of Treatment No Information Insurance Providers Payer Name Payer Address Payer Phone Subscriber Number Group Number Insured Name Patient Relationship to Insured Coverage Start Date Coverage End Date [employer] (MEDICAR E) [address] [address] [place] [address] [id number] Whitney Stafford Self - patient is the [...]
--- OUTSIDE RECORDS SUMMARY | 2024-12-20 07:15 | XMS_ITS | Clinical Summary ---
[facility] Address [address] [place] [address] Care Team Providers Care Energy Conservation Engineer Name Role Phone Damon Osuna MD Primary Care Provider Allergies No known active allergies Medications cetirizine (zyrTEC) 10 MG tablet Take 1 tablet by mouth Daily. 4 Active Diclofenac Sodium (VOLTAREN) 1 % gel gelIndications: Rheumatoid arthritis involving multiple sites with positive rheumatoid factor Apply 4 g topically to the appropriate area as directed 4 (Four) Times a Day As Needed (joint pain). 100 g 5 4 Active rOPINIRole (REQUIP) 0.5 MG tablet TAKE 1 OR 2 TABLETS TABLETS BY MOUTH 2 TIMES A DAY 5 Active PARoxetine (PAXIL) 20 MG tablet Take 1 tablet by mouth Every Morning. 5 Active sulfaSALAzine (AZULFIDINE ENTABS) 500 MG EC tabletIndicatio ns:Rheumatoid arthritis involving multiple sites with positive rheumatoid factor Take 3 tablets by mouth 2 (Two) Times a Day. 540 tablet 1 5 Active celecoxib (CeleBREX) 100 MG capsuleIndicati ons:Rheumatoid arthritis involving multiple sites with positive rheumatoid factor Take 1 capsule by mouth 2 (Two) Times a Day As Needed for Mild Pain. 180 capsule 1 5 Active Active Problems Problem Noted Date Diagnosed Date High risk medication use 10/29/2023 Assessment & Plan (10/29/2023 4:57 PM EDT): Sulfasalazine QTB negative 07/05/22 Hepatitis panel negative 10/12/2019. Labs every 4 months for monitoring. Well tolerated. No known side effect I discussed the side effects of sulfasalazine, including but not limited to rash, GI upset, photosensitivity, renal stones, hematologic and liver abnormalities Immunosuppression due to drug therapy 10/29/2023 Generalized osteoarthrosis, involving multiple s ites 10/29/2023 Assessment & Plan (10/29/2023 4:57 PM EDT): Stable with PRN Celebrex Risks of NSAIDs discussed including GI upset, GI bleeding, renal and hepatic risks and the risks of cardiovascular disease and stroke. Warned patient not to take with other NSAIDs including OTC NSAIDs Osteopenia of multiple sites 10/29/2023 Assessment & Plan (10/29/2023 3:41 PM EDT): DEXA scan performed 01/10/23 ACL-stable osteopenia hip Recommend regular exercise, calcium 1200 mg and vitamin D 1000 units daily. Work on quitting smoking Update bone density scan every 2 years Rheumatoid arthritis 10/28/2023 Assessment & Plan (10/29/2023 4:57 PM EDT): +CCP>250; +RF high titer; July's step mother; works senior citizen; dz since 2009 Cares for grandchildren/July's child prior mtx liquid 9.17.13 with juice - 8.15 (stopped due to nausea) scared of Current: Sulfasalazine 2016, Celebrex prior Xeljanz 01/11/22-04/05 (bad dreams on it). Low disease activity from RA. Swollen joint count 0. Tender joint count 0. Good prognosis. -Continue sulfasalazine 1500 mg twice daily and as needed celecoxib -Labs now and every 4 months CBC CMP for monitoring -Recent labs reviewed and are stable -Consult orthopedics Dr. De Guzman for severe toe deformities likely related to her RA and OA -Return to clinic 4 months Encounters Date Type Department Care Team Description 11/29/2024 Refill [facility] [address] [phone] Jeffrey Faustin MD Rheumatoid arthritis involving multiple sites with positive rheumatoid factor 10/19/2024 Results Follow-Up [facility] [address] [place] [phone] Jeffrey Faustin MD 10/13/2024 2:15 PM EDT Office Visit [facility] [address] [place] [phone] Jeffrey Faustin MD Rheumatoid arthritis involving multiple sites with positive rheumatoid factor (Primary Dx); High risk medication use; Post-menopause; Osteopenia of multiple sites 10/13/2024 Telephone [facility] [address] [place] [phone] Jeffrey Faustin MD 10/13/2024 Travel 10/11/2024 Telephone [facility] [address] [place] [phone] Jeffrey Faustin MD PT LAB ORDERS TO BE FAXED 10/08/2024 Telephone [facility] [address] [place] [phone] Jeffrey Faustin MD Med Refill; LAB ORDERS 10/06/2024 Refill [facility] [address] [place] [phone] Jeffrey Faustin MD Rheumatoid arthritis involving multiple sites with positive rheumatoid factor from Last 3 Months Family History Medical History Relation Name Comments Kidney disease Father Other Maternal Grandfather High bl ood pressure Relation Name Status Comments Father Maternal Grandfather Social History Tobacco Use Types Packs/Day Years Used Date Smoking Tobacco: Every Day Cigarettes Smokeless Tobacco: Never Tobacco Cessation:Ready to Q uit: Not Asked; Counseling Given: Not Answered Alcohol Use Standard Drinks/Week Comments Never 0 (1 standard drink = 0.6 oz pur e alcohol) Comments Unknown Sex and Gender Information Value Date Recorded Sex Assigned at Not on file Legal Sex Female 8:46 AM EDT Gender Identity Not on file Sexual Orientation Not on file Last Filed Vital Signs Vital Sign Reading Time Taken Comments Blood Pressure 122/70 10/13/2024 2:07 PM EDT Pulse 94 10/13/2024 2:07 PM EDT Temperature 36.6 C (97.9 F) 10/13/2024 2:07 PM EDT Respiratory Rate - - Oxygen Saturation - - Inhaled Oxygen Concentration - - Weight 63.7 kg (140 lb 8 oz) 10/13/2024 2:07 PM EDT Height 157.5 cm (5' 2 ) 10/13/2024 2:07 PM EDT Body Mass Index 25.7 10/13/2024 2:07 PM EDT Plan of Treatment Upcoming Encounters Date Type Department Care Team (Late st Contact Info) Description 03/21/2025 1:30 PM EST Appointment [facility] DEXA [address] [phone] 03/21/2025 2:00 PM EST Office Visit [facility] [address] [phone] Jeffrey Faustin MD [address] [address] Health Maintenance Due Date Last Done Comments COVID-19 Vaccine (#1) 11/01/1965 Pneumococcal Vaccine 50+ (1 of 2 - PCV) 1977 TDAP/TD VACCINES (1 - Tdap) 1977 ZOSTER VACCINE (1 of 2) 1977 MAMMOGRAM 1998 COLOGUARD 11/01/2003 COLON CANCER SCREENING 5 YEAR SIGMOIDOSCOPY 11/01/2003 COLONOSCOPY 11/01/2003 COLORECTAL CANCER SCREENING 11/01/2003 CT COLONOGRAPHY 11/01/2003 FECAL OCCULT BLOOD TEST 11/01/2003 FIT Testing (1 year) 11/01/2003 ANNUAL PHYSICAL 09/23/2023 HEPATITIS C SCREENING 09/23/2023 INFLUENZA VACCINE 01/12/2025 DXA SCAN 10/27/2025 10/28/2023 Procedures Procedure Name Priority Date/Time Associated Diagnosis Comments SCANNED - LABS 12/01/2024 SCANNED - LABS 10/12/2024 SCANNED - LABS 10/12/2024 DEXA SCAN Routine 10/28/2023 11:15 AM EDT from Last 3 Months or Most Recently Relevant to Health Maintenance Results * LABS SCANNED (12/01/2024) Only the most recent of3 resultswithin the time period is included. Danette [facility] LAB BLOOD ORDERABLES Final Re sult * [facility] DEXA SCAN (10/28/2023 11:15 AM EDT) Anatomical Region Laterality Modality Other Historical Provider HEALTH MAINTENANCE Final Result from Last 3 Months or Most Recently Relevant to Health Maintenance Insurance HUMAN Care Teams Energy Conservation Engineer Relationship Specialty Start Date End Date Damon Osuna MD [address] [address] [place] [id number] PCP - General Family Medicine 10/29/23
--- OUTSIDE RECORDS SUMMARY | 2024-12-20 07:15 | XMS_ITS | Encounter Summary ---
Author Organization [facility] Address [address] [place] [address] Care Team Providers Care Vision Care Associate Name Role Phone Damon Osuna MD Primary Care Provider Reason for Visit * Reason Onset Date Comments Med Refill 11/29/2024 Encounter Details Date Type Department Care Team (Late st Contact Info) Description 11/29/2024 Refill [facility] RHEUMATOLOGY [address] [phone] Jeffrey Faustin MD [address] [phone] Rheumatoid arthritis involving multiple sites with positive rheumatoid factor Social History Tobacco Use Types Packs/Day Years [...] encounter Miscellaneous Notes * Telephone Encounter - Sandy Roman MA - 11/29/2024 4:29 PM EDT ADB sent in new rx at patient's appointment on 10/13/24. Spoke with pharmacy and confirmed they received rx, spoke with patient and let her know pharmacy did have rx. She expressed understanding. * Telephone Encounter - Alycia Edwards RegSched Rep - 11/29/2024 4:21 PM EDT Caller: Rivera Whitney Chela Relationship: Self Best call back number: [phone] Requested Prescriptions: Requested Prescriptions Pending Prescriptions Disp Refills sulfaSALAzine (AZULFIDINE ENTABS) 500 MG EC tablet 540 tablet 1 Sig: Take 3 tablets by mouth 2 (Two) Times a Day. Pharmacy where request should be sent: PHARMACY ON FILE Last office visit with prescribing clinician: 10/13/2024 Last telemedicine visit with prescribing clinician: Visit date not found Next office visit with prescribing clinician: 03/21/2025 Additional details provided by patient: PT NEEDS NIKOS Does the patient have less than a 3 day supply: [x] Yes [] No Would you like a call back once the refill request has been completed: [] Yes [x] No If the office needs to give you a call back, can they leave a voicemail: [] Yes [x] No Lucy Mccoy 11/29/24 16:21 EDT documented in this encounter Plan of Treatment Upcoming Encounters Date Type Department Care Team (Late st Contact Info) Description 03/21/2025 1:30 PM EST Appointment [facility] RHEUMATOLOGY DEXA [address] [phone] 03/21/2025 2:00 PM EST Office Visit [facility] RHEUMATOLOGY [address] [phone] Jeffrey Faustin MD [address] [phone] documented as of this encounter Visit Diagnoses Diagnosis Rheumatoid arthritis involving multiple sites with positive rheumatoid factor documented in this encounter Care Teams Vision Care Associate Relationship Specialty Start Date End Date Damon Osuna MD [facility] access hospital[facility] [address] [place] [address] PCP - General Family Medicine 10/29/23 documented as of this encounter
--- NOTE | 2024-12-20 07:30 | NM_ITS ---
FINAL REPORT TECHNIQUE: Millicuries of technetium 99m sulfur colloid was ingested with eggs. CLINICAL HISTORY: Nausea FINDINGS: GASTRIC EMPTYING SCAN Static images show normal emptying of the stomach into the small bowel. Based on the time activity curve, the estimated half-emptying time is 49 minutes. IMPRESSION: Normal gastric emptying study. Reviewed, Interpreted and Dictated by Judi Law MD Transcribed by Chichi Dimas Authenticated and [facility]
[2024-12-20] MEDS: TC99M SULF.COLLOID;1 DOSE (UP TO 20 MCI) IV (07:40)
--- NOTE | 2024-12-20 09:00 | US_ITS ---
FINAL REPORT TECHNIQUE: Sonographic images of the right upper quadrant were obtained. CLINICAL HISTORY: Right upper quad pain COMPARISON: None FINDINGS: PANCREAS: Unremarkable. LIVER: Homogeneous. No focal hepatic lesion. No intrahepatic biliary ductal dilatation. GALLBLADDER: The gallbladder is contracted with a large gallstone. No gallbladder wall thickening or pericholecystic fluid. COMMON DUCT: 8 mm. Dilated common bile duct. RIGHT KIDNEY: The right kidney measures 9.4 cm. There is no hydronephrosis, mass, or stone. FREE FLUID: None. IMPRESSION: Contracted gallbladder with a large gallstone. The common bile duct is dilated, measuring 8 mm in diameter, consider MRCP for further evaluation. Reviewed, Interpreted and Dictated by Judi Law MD Transcribed by Giana Gallagher Authenticated and [facility]
== END 2024-12-20 23:59 | disposition home or self-care (01) ==
LOC: RAD 07:12
PROVIDERS: PCP Family Medicine; Visit Provider Surgery
DX: K80.20 Calculus of gallbladder without cholecystitis without obstruction (principal); K83.8 Other specified diseases of biliary tract
CPT/HCPCS: 76705; 78264; A9541

== ENCOUNTER 2025-01-11 07:31 | Outpatient (CLI) | payer MEDICARE, SELFPAY ==
--- OUTSIDE RECORDS SUMMARY | 2024-08-12 07:15 | XMS_ITS ---
Author Organization [facility] [address] [facility] [address] [place] [id number] Care Team Providers Care Carbon Electrodes Supervisor Name Role Phone Logan Osuna Primary Care Provider [phone] Jus Moreno Unavailable [phone] Allergies No Known Allergies REASON FOR VISIT [...] 3 tablet orally BID Active Vital Signs Weight 145.4 lbs 08/12/2024 Blood pressure systolic 149 mm Hg 08/13/19 25 Blood pressure diastolic 90 mm Hg 025 Heart Rate 105 /min 08/12/2024 Height 64 in 08/12/2024 BMI 24.96 kg/m2 08/12/2024 Encounters Encounter Location Date Provider Diagnosis [place] [address] [facility] [address] [place] [phone] 08/12/2024 Jus Moreno Conjunctivitis of ri ght [...] Up: 3 or 4 Weeks, Leisa son: Progress Notes * Jose Elias HUIOB:1960 (64 yo F)Acc No.[id number]:08/12/2024 Progress Notes Patient: Whitney GONZALEZ Provider: Rhonda Moreno M.D. :1960 A ge:63 Y S ex:Female Date:08/12/2024 Address:[address] [place] [address] [address] [place], [id number] Pcp:Logan Osuna Subjective: * Chief Complaints: * [...] pressure reading - R03.0 3 . B W[place] 24.0-24.9, adult - Z68.24 Plan: * Treatment: * Procedure Codes: G 2211 Complex e/m visit add on, 3077F SYST BP = 140 MM HG6 IT, 3080F DIAST BP = 90 MM HG, G8420 BMI<30 AND >=22 CALC & DOCU * Follow Up: 3 or 4 Weeks * Images: Billing Information: * Visit Code: 97832 Office Visit, Est Pt., Level 3. * Procedure Codes: G2211 Complex e/m visit add on. 3077F SYST BP = 140 MM HG6 IT. 3080F DIAST BP = 90 MM HG. G8420 BMI<30 AND >=22 CALC & DOCU. * Electronic signature of Ana Moreno MD on 01/11/2025 at 07:33 AM EDT Sign off status: Pending * Provider: Rhonda Moreno M.D. Date: 0 08/12/2024 Generated for Cecilio lee/Flip/Christsmitting on: 0 01/11/2025 07:33 AM EDT History and Physical Notes * [...]
--- OUTSIDE RECORDS SUMMARY | 2024-09-02 06:00 | XMS_ITS ---
Author [facility] Address [address] [facility] [address] [place] [id number] Care Team Providers Care Block Cleaner Name Role Phone Logan Osuna Primary Care Provider Jus Moreno Unavailable [phone] Allergies No Known Allergies REASON FOR VISIT [...] tablet orally BID Active Vital Signs Weight 143.4 lbs 09/02/2024 Blood pressure systolic 124 mm Hg 09/03/19 25 Blood pressure diastolic 80 mm Hg 025 Heart Rate 84 /min 09/02/2024 Height 64 in 09/02/2024 BMI 24.61 kg/m2 09/02/2024 Encounters Encounter Location Date Provider Diagnosis [place] [address] [facility] [address] [place] [id number] 09/02/2024 Jus Moreon Elevated blood press ure reading R03.0 ; [...] * Jose Elias HUIOB:1960 (64 yo F)Acc No.[id number]:09/02/2024 Progress Notes Patient: Whitney GONZALEZ Provider: Rhonda Moreno M.D. :1960 A ge:63 Y S ex:Female Date:09/02/2024 [address] [id number] Pcp:Logan Osuna Subjective: * Chief Complaints: * [...] unspecified trigger - J30.9 5 . B [place] 24.0-24.9, adult - Z68.24 Plan: * Treatment: [...] * Images: Billing Information: * Visit Code: 02183 Office Visit, Est Pt., Level 4. * [...] 09/02/2024 Generated for Cecilio lee/Flip/Mikelitting on: 0 01/11/2025 07:33 AM EDT History [...]
--- OUTSIDE RECORDS SUMMARY | 2024-10-12 09:45 | XMS_ITS ---
Author Organization [facility] Address [address] [facility] [address] [place] [phone] Care Team Providers Care Coil Inspector Name Role Phone Logan Osuna Primary Care Provider Results Component Value Reference Range Notes P-CBC With Platelet No Diffe rential Reviewed date:10/14/2024 04:24:45 PM Interpretation:Normal Performing Lab: Notes/Report: Test performed by [facility] [address] [place], [place] [address] , [place] [address] Morgan Sweeney MD, Patient Insurance Clerk CLIA: [id number] WBC 6.5 3.8-11.5 K/uL Red Blood Cell [...] Interpretation:Normal Performing Lab: Notes/Report: Test performed by [facility] [address] [place], [place] [address] [place] , [address], [place] [address] Morgan Sweeney MD, Patient Insurance Clerk CLIA: [id number] Neutrophils-Manual 62 41-77 % Lymphocytes Manual 28 14-48 % Monocytes Manual 6 4-13 % Eosinophils Manual 3 0-8 % Basophils Manual 1 0-1 % Polychromasia Moderate Poikilocytosis Moderate [place] Cell Few Ovalocytes Few Tear Drop Cells Few Platelet Slide Review Normal REASON FOR VISIT blood work Encounters Encounter Location Date Provider Diagnosis [facility] [address] [facility] [facility] [address] [place] [id number] 10/12/2024 Logan Osuna Rheumatoid arthritis involving multiple [...] * Jose Elias HUIOB:1960 (64 yo F)Acc No.[id number]:10/12/2024 Patient: Whitney GONZALEZ Provider: Logan Osuna M.D. :1960 A ge:63 Y S ex:Female Date:10/12/2024 Address:[address] [place], [place] [id number] Subjective: * Chief Complaints: * 1 . [...] W BC 6.5 3.8-11.5 - K/uL * [facility] IT support 10/13/2024 04:35:04 : This order was created by the Interface. Logan Osuna 10/14/2024 04:17:43 PM EDT > reviewed. Please fax results to assistant toddler teacher who ordered the lab Tasneem Taylor 10/14/2024 [...] T ear Drop Cells Few - * [facility], IT support 10/13/2024 04:35:05 : This order was created by the Interface. Logan Osuna 10/14/2024 04:17:43 PM EDT > reviewed. Please fax results to assistant toddler teacher who ordered the lab Tasneem Taylor 10/14/2024 04:24:39 PM EDT >results faxed * Images: Billing Information: * Visit Code: * Procedure Codes: * Electronic signature of Logan Osuna MD on 01/11/2025 at 07:34 AM EDT Sign off status: Pending * Provider: Logan Osuna M.D. Date: 0 10/12/2024 Generated for Cecilio lee/Flip/Rodney on: 0 01/11/2025 07:34 AM EDT
--- OUTSIDE RECORDS SUMMARY | 2024-12-01 05:00 | XMS_ITS ---
Author Organization [facility] Address [address] [facility] [address] [place] [id number] Care Team Providers Care Volunteer Patient Representative Name Role Phone Logan Osuna Primary Care Provider Danette Henson Unavailable [phone] Allergies No Known Allergies Results Component Value Reference Range Notes CBC Venipuncture (in house) Reviewed date:12/01/2024 01:09:33 PM Interpretation: Performing Lab: Notes/Report: wbc 7.4 3.5 - 10 lymph 18.0% 15 - 50 mid 5.4% 2 - 15 gran 76.6% 35 - 80 rbc 4.58 3.5 - 5.5 hgb 13.1 11.5 - 16.5 hct 40.4 35 - 55 mcv 88.2 75 - 100 mch 28.7 25 - 35 mchc 32.5 31 - 38 platlet 253 100 - 400 P-Comprehensive Metabolic Pa asif (CMP) Reviewed date:12/16/2024 01:12:49 PM Interpretation: Performing Lab: Notes/Report: Test performed by [facility] [address] [place] [address] , [address], [place] [address] Morgan Sweeney MD, Director Park CLIA: [id number] Sodium 140 135-145 mmol/L Potassium 4.7 3.5-5.3 mmol/L Chloride 105 97-108 mmol/L CO2 25 20-32 mmol/L Glucose 82 65-99 mg/dL BUN 13 8-23 mg/dL Creatinine 0.82 0.50-1.00 mg/dL Calcium 9.4 8.6-10.4 mg/dL eGFR by Creatinine 79 >59 mL/min/1.73m2 Protein 6.8 6.0-8.3 g/dL Albumin 4.2 3.5-5.3 g/dL Alkaline Phosphatase 82 35-121 IU/L ALT (SGPT) 16 <5-47 IU/L AST (SGOT) 20 <5-40 IU/L Bilirubin, Total <0.2 <0.2-1.2 mg/dL A/G Ratio 1.6 1.1-2.5 M-A-Qouppnos Protein (CRP), High Sensitivity Reviewed date:12/16/2024 01:12:49 PM Interpretation: Performing Lab: Notes/Report: Test performed by [facility] [address] [place], [place] [address] [place] [address], [place] [address] Morgan Sweeney MD, Director Park CLIA: [id number] C-Reactive Protein (CRP), Hi gh Sensitivity 2.40 <3.01 mg/L For non-specific CRP usage, refer to reference range above. For CRP cardiac risk assessment, refer to chart and test recommendation below. CARDIOVASCULAR RISK ASSESSMENT RISK LEVEL CRP(mg/L) CRP(mg/dL) Low <1.0 <0.10 Average 1.0-3.0 0.10-0.30 High >3.0 >0.30 CRP is a non-specific marker of inflammation and a variety of conditions including atherosclerosis may cause elevated concentrations. If the first result is greater than 3.0 mg/L, repeat testing is recommended at least 2 weeks later when patient is in a metabolically stable state, free of infection or acute illness. The lower of the two results should be used to determine patient risk. P-Sed Rate (ESR) Reviewed date:12/16/2024 01:12:49 PM Interpretation: Performing Lab: Notes/Report: Test performed by [facility] [address] [place], [place] [address] [place] [address], [place] [address] Morgan Sweeney MD, Director Park CLIA: [id number] Erythrocyte Sedimentation Ra te (ESR), Automated 39 <31 mm/hr P-Lipid Panel Reviewed date:12/16/2024 01:12:49 PM Interpretation: Performing Lab: Notes/Report: Test performed by [facility] [address] [facility] [address], [place] [address] Morgan Sweeney MD, Director Park CLIA: [id number] Cholesterol 189 <200 mg/dL Triglycerides 212 <150 mg/dL HDL Cholesterol 41 >39 mg/dL Cholesterol / HDL Ratio 4.61 0.00-4.44 Ratio Non-HDL Cholesterol 148 <130 mg/dL LDL Cholesterol (Calculation) 106 <130 mg/dL LDL Cholesterol Levels* Less than 100 mg/dL Optimal 100 to 129 mg/dL Near Optimal/ Above Optimal 130 to 159 mg/dL Borderline High 160 to 189 mg/dL High 190 mg/dL and above Very High * Categories as recommended by the 2004 ATPIII guidelines LDL/HDL Ratio 2.6 <3.3 Ratio LDL Cholesterol Patient History Test Date: 08/01/2023 LDL Results: 129 Units: mg/dL % Change: - Test Date: 06/02/2024 LDL Results: 109 Units: mg/dL % Change: -15% Test Date: 12/01/2024 LDL Results: 106 Units: mg/dL % Change: -2% P-TSH reflex to FT4 Reviewed date:12/16/2024 01:12:49 PM Interpretation: Performing Lab: Notes/Report: Test performed by [facility] , [facility], [place] [address] Morgan Sweeney MD, Director Park CLIA: [id number] TSH reflex to FT4 2.01 0.43-5.25 mU/L Reason For Referral Diagnosis 1 Gallstones (K80.20) [facility] Referring Provider First Name Danette Referring Provider Last Name Natividad Referring Provider Speciality Physician Dispenser Operator Referred Provider Specialty General Surg vikash General Notes Danette Henson 09:51:27 AM >Pt needs an appt with Ruby Lowe Brynn 12/01/2024 10:51:29 AM > 12/09/2024 at 09:15am; patient informed Referral Priority Routine REASON FOR VISIT 6 month check, Needs bone density screening & Prevnar vaccine Medications Medication SIG (Take, Route, Frequency, Duration) Notes Start Date End Date Status PARoxetine HCl 20 mg TAKE ONE TABLET BY MOUTH EVERY MORNING; Duration: 30 Active Cetirizine HCl 10 MG 1 tablet Orally Onc e a day; Duration: 90 days 09/02/2024 Active Omeprazole 40 mg 1 capsule orally onc e a day; Duration: 30 days Active rOPINIRole HCl 0.5 MG 1 or 2 tablets Ora lly Two times a day Active sulfaSALAzine 500 MG 3 tablet orally BID Active Albuterol Sulfate HFA 108 (90 Base) MCG/ACT 2 puff(s) inhaled every 6 hours Active hydrOXYzine HCl 25 MG 1 tablet as needed Orally four times a day as needed Active CeleBREX 200 MG 1 cap(s) orally once a day Active Problems Problem Type SNOMED Code ICD Code Onset Dates Problem Status W/U Status Risk Notes Problem Gallstones (951938850) Gallstones (K80.20) Active confirmed Vital Signs Weight 146.2 lbs 12/01/2024 Blood pressure systolic 120 mm Hg 12/02/19 Blood pressure diastolic 78 mm Hg 025 Heart Rate 82 /min 12/01/2024 Height 64 in 12/01/2024 BMI 25.09 kg/m2 12/01/2024 Encounters Encounter Location Date Provider Diagnosis [facility] [address], [place] [id number] 12/01/2024 Danette Henson Gallstones K80.20 ; GERD (gastroesophageal reflux disease) K21.9 ; Rheumatoid arthritis, involving unspecified site, unspecified whether rheumatoid factor present M06.9 ; Anxiety F41.9 ; Renal insufficiency N28.9 ; Chronic bronchitis J42 ; Panic attacks F41.0 ; Tobacco use disorder F17.200 ; Restless leg syndrome G25.81 ; Osteoarthritis of multiple joints, unspecified osteoarthritis type M15.9 ; Mixed hyperlipidemia E78.2 and BMI 25.0-25.9,adult Z68.25 Assessments Encounter Date Diagnosis (ICD Code) Assessment Notes Treatment Notes Treatment Clinical Notes Section Notes 12/01/2024 Gallstones (ICD-10 - K80.20) 12/01/2024 GERD (gastroesophageal reflux disease) (ICD-10 - K21.9) 12/01/2024 Rheumatoid arthritis, involving unspecified site, unspecified whether rheumatoid factor present (ICD-10 - M06.9) Patient has bone density done at Rheumatology office. 12/01/2024 Anxiety (ICD-10 - F41.9) 12/01/2024 Renal insufficiency (ICD-10 - N28.9) 12/01/2024 Chronic bronchitis (ICD-10 - J42) 12/01/2024 Panic attacks (ICD-10 - F41.0) 12/01/2024 Tobacco use disorder (ICD-10 - F17.200) 12/01/2024 Restless leg syndrome (ICD-10 - G25.81) 12/01/2024 Osteoarthritis of multiple joints, unspecified osteoarthritis type (ICD-10 - M15.9) 12/01/2024 Mixed hyperlipidemia (ICD-10 - E78.2) 12/01/2024 BMI 25.0-25.9,adult (ICD-10 - Z68.25) Plan Of Treatment Treatment Notes Assessment Notes Rheumatoid arthritis, involv ing unspecified site, unspecified whether rheumatoid factor present Patient has bone density done at Rheumatology office. Referrals Referral Date Details 12/01/2024 12/01/2024 Next Appt Details Follow Up: via phone to repo rt test results, Reason: Progress Notes * Jose Elias HUIOB:1960 (64 yo F)Acc No.[id number]:12/01/2024 Progress Notes Patient: Whitney GONZALEZ Provider: MARICRUZ Mak :1960 A ge:64 Y S ex:Female Date:12/01/2024 Address:[address] [place] [address] J[place]ANCARLOS Pal[place] [id number] Pcp:Logan Osuna Subjective: * Chief Complaints: * 1 . 6 month check. 2. Needs bone density screening & Prevnar vaccine. * HPI: H PI: Patient is here today for 6 month checkup. Pt is fasting.? P t states she is doing well with no new concerns today. * ROS: D ERMATOLOGY: no R candida. [...] cap(s) orally once a day , Taking hydrOXYzine HCl 25 MG Tablet 1 tablet as needed Orally four times a day as needed , Taking Albuterol Sulfate HFA 108 (90 Base) MCG/ACT Aerosol Solution 2 puff(s) inhaled every 6 hours , Taking rOPINIRole HCl 0.5 MG Tablet 1 or 2 tablets Orally Two times a day , Taking Cetirizine HCl 10 MG Tablet 1 tablet Orally Once a day , Taking PARoxetine HCl 20 mg Tablet TAKE ONE TABLET BY MOUTH EVERY MORNING , Taking Omeprazole 40 mg Capsule Delayed Release 1 capsule orally once a day , Medication List reviewed and reconciled with the patient * Allergies: N .K.D.A. Objective: * Vitals: W t: 146.2, Temp: 97.7, BP: 120/78, HR: 82, Nurse: donovan, Ht: 64, BMI:25.09. * Examination: G eneral Examination: General Appearance: N AD. H EENT: u nremarkable.?Oral cavity: n o lesions, mucosa moist and WNL, no erythema. N ramiro: s upple, no lymphadenopathy. C hest: n ormal shape and expansion. H eart: R SR. L ungs: c lear to auscultation. A bdomen: b owel sounds present, soft and nontender. N eurologic Exam: I ntact, gait normal. S kin: n ormal, no rash. P eripheral pulses: n ormal (2+) bilaterally. E xtremities: n o leg edema. Assessment: * Assessment: 1. G allstones - K80.20 (Primary) 2 . G ERD (gastroesophageal reflux disease) - K21.9 3 . R heumatoid arthritis, involving unspecified site, unspecified whether rheumatoid factor present - M06.9 4 . A nxiety - F41.9 5 . Renal insufficiency - N28.9 6 . C hronic bronchitis - J42 7 . P anic attacks - F41.0 8 . T obacco use disorder - F17.200 ?9. R estless leg syndrome - G25.81 1 0. O steoarthritis of multiple joints, unspecified osteoarthritis type - M15.9 1 1. M ixed hyperlipidemia - E78.2? 12. B [place] 25.0-25.9,adult - Z68.25 Plan: * Treatment: 2. R heumatoid arthritis, involving unspecified site, unspecified whether rheumatoid factor present L AB: Q-R-Abtrnnqt Protein (CRP), High Sensitivity (Collection Date & Time - 12/01/2024 08:42 AM) Value Reference Range C -Reactive Protein (CRP), High Sensitivity 2.40 <3.01 - mg/L * Danette Henson 12/01/2024 0 9:40:13 AM EDT >room 4, Danette Hawkins 12/16/2024 01:12:18 PM EDT >see TE ?LAB: P-Sed Rate (ESR) (Collection Date & Time - 12/01/2024 08:42 AM)* Value Reference Range E rythrocyte Sedimentation Rate (ESR), Automated 39 H <31 - mm/hr * Danette Henson 12/01/2024 0 9:40:13 AM EDT >room 4, Danette Hawkins 12/16/2024 01:12:18 PM EDT >see TE ?LAB: CBC Venipuncture (in house) (Collection Date & Time - 12/01/2024)* Value Reference Range w bc 7.4 3.5 - 10 * l ymph 18.0% 15 - 50 * m id 5.4% 2 - 15 * g ran 76.6% 35 - 80 * r bc 4.58 3.5 - 5.5 * h gb 13.1 11.5 - 16.5 * h ct 40.4 35 - 55 * m cv 88.2 75 - 100 * m ch 28.7 25 - 35 * m chc 32.5 31 - 38 * p latlet 253 100 - 400 * Nsia Koo 12/01/2024 1 2:41:23 PM EDT > Notes: Patient has bone density done at Rheumatology office.??3.?Renal insufficiency?LAB: P-Comprehensive Metabolic Panel (CMP) (Collection Date & Time - 12/01/2024 08:42 AM)* Value Reference Range A /G Ratio 1.6 1.1-2.5 - * A lbumin 4.2 3.5-5.3 - g/dL * A lkaline Phosphatase 82 35-121 - IU/L * A LT (SGPT) 16 <5-47 - IU/L * A ST (SGOT) 20 <5-40 - IU/L * B ilirubin, Total <0.2 <0.2-1.2 - mg/dL * B UN 13 8-23 - mg/dL * C alcium 9.4 8.6-10.4 - mg/dL * C hloride 105 97-108 - mmol/L * C O2 25 20-32 - mmol/L * C reatinine 0.82 0.50-1.00 - mg/dL * G lucose 82 65-99 - mg/dL * P otassium 4.7 3.5-5.3 - mmol/L * S odium 140 135-145 - mmol/L * P rotein 6.8 6.0-8.3 - g/dL * e GFR by Creatinine 79 >59 - mL/min/1.73m2 * Danette Henson 12/01/2024 0 9:40:13 AM EDT >room 4, vahe Henson Danette S 12/16/2024 01:12:18 PM EDT >see TE 4.?Mixed hyperlipidemia?LAB: P-Lipid Panel (Collection Date & Time - 12/01/2024 08:42 AM)* Value Reference Range C holesterol / HDL Ratio 4.61 H 0.00-4.44 - Ratio * C holesterol 189 <200 - mg/dL * H DL Cholesterol 41 >39 - mg/dL * L DL Cholesterol (Calculation) 106 <130 - mg/d L * L DL/HDL Ratio 2.6 <3.3 - Ratio * N on-HDL Cholesterol 148 H <130 - mg/dL * T riglycerides 212 H <150 - mg/dL * Danette Henson 12/01/2024 0 9:40:13 AM EDT >room 4, vahe Danette Henson S 12/16/2024 01:12:18 PM EDT >see TE ?LAB: P-TSH reflex to FT4 (Collection Date & Time - 12/01/2024 08:42 AM)* Value Reference Range T SH reflex to FT4 2.01 0.43-5.25 - mU/L * Danette Henson 12/01/2024 0 9:40:13 AM EDT >room 4, purple Danette Henson 12/16/2024 01:12:18 PM EDT >see TE * Procedure Codes: G 2211 Complex e/[place], [address] CBC WITH AUTO DIFF, 39753 VENIPUNCT, ROUTINE*, G8420 BMI<30 AND >=22 CALC & DOCU, G8783 BP SCR PRFRM RCMDD DEFIND SCR INTVL, G8752 MOST RECENT SYSTOLIC BP < 140MM HG, G8754 MOST RECENT DIASTOLIC BP < 90MM HG * Follow Up: v ia phone to report test results * Images: Billing Information: * Visit Code: 00052 Office Visit, Est Pt., Level 4. * Procedure Codes: G2211 Complex e/[place]. [address] CBC WITH AUTO DIFF. 22459 VENIPUNCT, ROUTINE*. G8420 BMI<30 AND >=22 CALC & DOCU. G8783 BP SCR PRFRM RCMDD DEFIND SCR INTVL. G8752 MOST RECENT SYSTOLIC BP < 140MM HG. G8754 MOST RECENT DIASTOLIC BP < 90MM HG. * Electronic signature of MARICRUZ Nickerson on 01/11/2025 at 07:34 AM EDT Sign off status: Pending * Provider: MARICRUZ Mak Date: 0 12/01/2024 Generated for Cecilio ng/Fataylorg/eTransmitting on: 0 01/11/2025 07:34 AM EDT History and Physical Notes * HPI (History of Present Illness) Category Sub-Category Detail Notes Category Not es HPI Patient is here today for 6 lex h checkup. Pt is fasting. Pt states she is doing well with no new concerns today Examination Category Sub-Category Detail Notes Category Not es General Examination HEENT: unremarkable Heart: RSR Lungs: clear to auscultatio n Abdomen: bowel sounds present , soft and nontender Extremities: no leg edema General Appearance: NAD Skin: normal, no rash Neurologic Exam: Intact, gait normal Neck: supple, no lymphaden opathy Oral cavity: no lesions, mucosa m oist and WNL, no erythema Peripheral pulses: normal (2+) bilatera lly Chest: normal shape and exp ansion Consultation Request Notes Referral Date Referring Provider Referred Provider Not es 12/01/2024 Danette Henson ,
--- OUTSIDE RECORDS SUMMARY | 2024-12-29 10:15 | XMS_ITS ---
[facility] Organization [facility] Address [address] [facility] [address] [place] [phone] Care Team Providers Care Community Organization Worker Name Role Phone Logan Osuna Primary Care Provider [phone] Natividad Danette Unavailable [phone] Allergies No Known Allergies REASON FOR VISIT still having stomach issues Medications Medication SIG (Take, Route, Frequency, Duration) Notes Start Date End Date Status Omeprazole 40 mg 1 capsule orally onc e a day; Duration: 30 days Active sulfaSALAzine 500 MG 3 tablet orally BID Active PARoxetine HCl 30 MG 1 tablet in the mor zeinab Orally Once a day; Duration: 30 days 12/29/2024 Active CeleBREX 200 MG 1 cap(s) orally once a day Active rOPINIRole HCl 0.5 MG 1 or 2 tablets Ora lly Two times a day Active Albuterol Sulfate HFA 108 (90 Base) MCG/ACT 2 puff(s) inhaled every 6 hours Active Cetirizine HCl 10 MG 1 tablet Orally Onc e a day; Duration: 90 days 09/02/2024 Active hydrOXYzine HCl 25 MG 1 tablet as needed Orally four times a day as needed Active Vital Signs Weight 146.6 lbs 12/29/2024 Blood pressure systolic 122 mm Hg 12/30/19 25 Blood pressure diastolic 72 mm Hg 025 Heart Rate 91 /min 12/29/2024 Height 64 in 12/29/2024 BMI 25.16 kg/m2 12/29/2024 Encounters Encounter Location Date Provider Diagnosis [facility] [address] [facility] [address] [place] [phone] 12/29/2024 Danette Henson Gallstones K80.20 ; GERD (gastroesophageal reflux disease) K21.9 ; Nausea R11.0 ; Panic attacks F41.0 and BMI 25.0-25.9,adult Z68.25 Assessments Encounter Date Diagnosis (ICD Code) Assessment Notes Treatment Notes Treatment Clinical Notes Section Notes 12/29/2024 Gallstones (ICD-10 - K80.20) Patient has been seeing Dr. Mujica. He wanted to do an MRCP but she is unsure if she wants to do this test. She would like to try increasing her anxiety medication to see if it helps with the nausea first. 12/29/2024 GERD (gastroesophage al reflux disease) (ICD-10 - K21.9) 12/29/2024 Nausea (ICD-10 - R11.0) 12/29/2024 Panic attacks (ICD-10 - F41.0) 12/29/2024 BMI 25.0-25.9,adult (ICD-10 - Z68.25) Plan Of Treatment Medication Medication Name Sig Start Date Stop Date Notes PARoxetine HCl 20 mg 1 tablet in the mor zeinab orally once a day PARoxetine HCl 30 MG 1 tablet in the mor zeinab Orally Once a day; Duration: 30 days 12/29/2024 Treatment Notes Assessment Notes Gallstones Patient has been see ing Dr. Mujica. He wanted to do an MRCP but she is unsure if she wants to do this test. She would like to try increasing her anxiety medication to see if it helps with the nausea first. Next Appt Details Follow Up: via phone to repo rt progress, Reason: Progress Notes * SHAWNAJEAN MARIEOpal Jose EliasOB:1960 (64 yo F)Acc No.[id number]:12/29/2024 Progress Notes Patient: Whitney GONZALEZ Provider: MARICRUZ Mak :1960 A ge:64 Y S ex:Female Date:12/29/2024 Address:[address] [place] [address] [address], [place] [id number] Pcp:Logan Osuna Subjective: * Chief Complaints: * 1 . Still having stomach issues. * HPI: G astroenterology: Pt states she is always sick to her stomach. Pt states it started few weeks ago and been off and on since then. 64 year old female presents with c/o Nausea w ithout food, with food, without retching. Denies : Abdominal Pain. D enies : Heartburn. D enies : Vomiting. D enies : Diarrhea. D enies : Fever. * ROS: D ERMATOLOGY: no R candida. [...] tablet Orally Once a day , Taking Omeprazole 40 mg Capsule Delayed Release 1 capsule orally once a day , Taking PARoxetine HCl 20 mg Tablet 1 tablet in the morning orally once a day , Medication List reviewed and reconciled with the patient * Allergies: N .K.D.A. Objective: * Vitals: W t: 146.6, Temp: 97.8, BP: 122/72, HR: 91, Nurse: pe, Ht: 64, BMI:25.16. * Examination: G eneral Examination: General Appearance: [...] (gastroesophageal reflux disease) - K21.9 3 . N ausea - R11.0 4 . P anic attacks - F41.0? 5. B PA 25.0-25.9,adult - Z68.25 Plan: * Treatment: 2. P anic attacks Stop PARoxetine HCl Tablet, 20 mg, 1 tablet in the morning, orally, once a day. * Procedure Codes: G 2211 Complex e/m visit add on, G8420 BMI<30 AND >=22 CALC & DOCU, G8783 BP SCR PRFRM RCMDD DEFIND SCR INTVL, G8752 MOST RECENT SYSTOLIC BP < 140MM HG, G8754 MOST RECENT DIASTOLIC BP < 90MM HG, 3074F SYST BP LT 130 MM HG, 3078F DIAST BP < 80 MM HG * Follow Up: v ia phone to report progress * Images: Billing Information: * Visit Code: 26623 Office Visit, Est Pt., Level 4. * Procedure Codes: G2211 Complex e/m visit add on. G8420 BMI<30 AND >=22 CALC & DOCU. G8783 BP SCR PRFRM RCMDD DEFIND SCR INTVL. G8752 MOST RECENT SYSTOLIC BP < 140MM HG. G8754 MOST RECENT DIASTOLIC BP < 90MM HG. 3074F SYST BP LT 130 MM HG. 3078F DIAST BP < 80 MM HG. * Electronic signature of MARICRUZ Nickerson on 01/11/2025 at 07:34 AM EDT Sign off status: Pending * Provider: MARICRUZ Mak Date: 0 12/29/2024 Generated for Lokii ng/Flip/eTransmitting on: 0 01/11/2025 07:34 AM EDT History and Physical Notes * HPI (History of Present Illness) Category Sub-Category Detail Notes Category Not es Gastroenterology Fever Vomiting Abdominal Pain Diarrhea Nausea without food, with f ood, without retching Heartburn Examination Category Sub-Category Detail Notes Category Not [...]
--- OUTSIDE RECORDS SUMMARY | 2025-01-11 07:34 | XMS_ITS | Clinical Summary ---
[facility] Address [address] [place] [address] Care Team Providers Care Sewing Inspector Name Role Phone Damon Osuna MD Primary [...] Type Department Care Team Description 11/29/2024 Refill [facility] RHEUMATOLOGY [address] [phone] Jeffrey Faustin MD Rheumatoid arthritis involving multiple sites with positive rheumatoid factor 10/19/2024 Results Follow-Up [facility] RHEUMATOLOG[facility] [address] [place] [phone] Jeffrey Faustin MD 10/13/2024 2:15 PM EDT Office Visit [facility] RHEUMATOLOGY [address] [place] [phone] Jeffrey Faustin MD Rheumatoid arthritis involving multiple sites with positive rheumatoid factor (Primary Dx); High risk medication use; Post-menopause; Osteopenia of multiple sites 10/13/2024 Telephone [facility]HE[facility] [address] [place] [phone] Jeffrey Faustin MD 10/13/2024 Travel 10/11/2024 Telephone [facility] [address] [place] [phone] Jeffrey Faustin MD PT LAB ORDERS TO BE FAXED from Last 3 Months Family History Medical [...] Info) Description 03/21/2025 1:30 PM EST Appointment [facility] RHEUMATOLOGY DEXA [address] [phone] 03/21/2025 2:00 PM EST Office Visit [facility] [address] [phone] Jeffrey Faustin MD [address] [phone] Health Maintenance Due Date Last Done Comments [...] 09/23/2023 HEPATITIS C SCREENING 09/23/2023 INFLUENZA VACCINE 11/12/2024 DXA SCAN 10/27/2025 10/28/2023 Procedures Procedure Name Priority Date/Time Associated Diagnosis Comments SCANNED - LABS 12/01/2024 SCANNED - LABS 10/12/2024 SCANNED - LABS 10/12/2024 HM DEXA SCAN Routine 10/28/2023 11:15 AM EDT [...] Most Recently Relevant to Health Maintenance Insurance [employer] Care Teams Sewing Inspector Relationship Specialty Start Date End Date Damon Osuna MD [address] [facility] [address] [place] [address] PCP - General Family Medicine 10/29/23
--- OUTSIDE RECORDS SUMMARY | 2025-01-11 07:34 | XMS_ITS | Patient Health Record ---
[facility] Organization [facility] [address] [facility] [address] [place] [id number] Care Team Providers Care Consultant Technology Name Role Phone Logan Osuna Primary Care Provider Outlook, Jus Unavailable [phone] Danette Henson Unavailable [phone] Allergies No Known Allergies Results Component Value Reference Range Notes P-CBC With Platelet No Diffe rential Reviewed date:10/14/2024 04:24:45 PM Interpretation:Normal Performing Lab: Notes/Report: Test performed by [facility] [address] , [address], [place] [address] Morgan Sweeney MD, Digital Marketing Assistant CLIA: [id number] WBC 6.5 3.8-11.5 K/uL Red Blood Cell [...] Interpretation:Normal Performing Lab: Notes/Report: Test performed by [email or web address] [address] [place] [address] , [address], [place] [address] Morgan Sweeney MD, Digital Marketing Assistant CLIA: [id number] Neutrophils-Manual 62 41-77 % Lymphocytes Manual 28 [...] Interpretation: Performing Lab: Notes/Report: Test performed by [facility] [address] , [place] [address] Morgan Sweeney MD, Digital Marketing Assistant CLIA: [id number] TSH reflex to FT4 2.07 0.43-5.25 mU/L P-Magnesium Reviewed date:06/03/2024 08:46:12 AM Interpretation: Performing Lab: Notes/Report: Test performed by [facility] [address] , [address], [place] [address] Morgan Sweeney MD, Digital Marketing Assistant CLIA: [id number] Magnesium 2.0 1.6-2.4 mg/dL P-Lipid Panel Reviewed date:06/03/2024 08:46:12 AM Interpretation: Performing Lab: Notes/Report: Test performed by [facility] [address] , [place] [address] Morgan Sweeney MD, Digital Marketing Assistant CLIA: [id number] Cholesterol 183 <200 mg/dL Triglycerides 118 <150 [...] Interpretation: Performing Lab: Notes/Report: Test performed by [facility], [address] [facility], [place] [address] Morgan Sweeney MD, Digital Marketing Assistant CLIA: [id number] Erythrocyte Sedimentation Rate (ESR), Automated 45 <31 mm/hr K-W-Uvwqpjck Protein (CRP) Reviewed date:06/03/2024 08:46:12 AM Interpretation: Performing Lab: Notes/Report: Test performed by [email or web address] [address] [place] [address] , [address], [place] [address] Morgan Sweeney MD, Digital Marketing Assistant CLIA: [id number] C-Reactive Protein (CRP) 0.23 <0.50 mg/dL P-Comprehensive Metabolic Pa asif (CMP) Reviewed date:06/03/2024 08:46:12 AM Interpretation: Performing Lab: Notes/Report: Test performed by [email or web address] [address] [place] [address] , [address], [place] [address] Morgan Sweeney MD, Digital Marketing Assistant CLIA: [id number] Sodium 139 135-145 mmol/L Potassium 4.6 3.5-5.3 [...] - 38 platlet 244 100 - 400 P-TSH reflex to FT4 Reviewed date:12/16/2024 01:12:49 PM Interpretation: Performing Lab: Notes/Report: Test performed by [email or web address] [address] [place] [address] , [place] [address] Morgan Sweeney MD, Digital Marketing Assistant CLIA: [id number] TSH reflex to FT4 2.01 0.43-5.25 mU/L CBC Venipuncture (in house) Reviewed date:12/01/2024 01:09:33 [...] - 38 platlet 253 100 - 400 P-Sed Rate (ESR) Reviewed date:12/16/2024 01:12:49 PM Interpretation: Performing Lab: Notes/Report: Test performed by [email or web address] [address] [place] [address] , [address], [place] [address] Morgan wSeeney MD, Digital Marketing Assistant CLIA: [id number] Erythrocyte Sedimentation Rate (ESR), Automated 39 <31 mm/hr P-Lipid Panel Reviewed date:12/16/2024 01:12:49 PM Interpretation: Performing Lab: Notes/Report: Test performed by [email or web address] [address] [place] [address] [place] [address] Morgan Sweeney MD, Digital Marketing Assistant CLIA: [id number] Cholesterol 189 <200 mg/dL Triglycerides 212 <150 [...] Results: 106 Units: mg/dL % Change: -2% A-P-Esyexlff Protein (CRP), High Sensitivity Reviewed date:12/16/2024 01:12:49 PM Interpretation: Performing Lab: Notes/Report: Test performed by [facility], [address] , [place] [address] Morgan Sweeney MD, Digital Marketing Assistant CLIA: [id number] C-Reactive Protein (CRP), High Sensitivity 2.40 <3.01 [...] should be used to determine patient risk. P-Comprehensive Metabolic Pa asif ([facility]) Reviewed date:12/16/2024 01:12:49 PM Interpretation: Performing Lab: Notes/Report: Test performed by [email or web address] [address] [place] [address] , [address], [place] [address] Morgan Sweeney MD, Digital Marketing Assistant CLIA: [id number] Sodium 140 135-145 mmol/L Potassium 4.7 3.5-5.3 [...] <0.2 <0.2-1.2 mg/dL A/G Ratio 1.6 1.1-2.5 CBC Fingerstick (in house) Reviewed date:03/03/2024 01:12:01 [...] - 38 plat 199 100 - 400 Ultrasound : Breast, right Reviewed date:07/16/2024 04:36:54 PM Interpretation: Performing Lab: Notes/Report: Ultrasound : Breast, right Reviewed date:07/16/2024 04:36:54 PM Interpretation: Performing Lab: Notes/Report: P-Sed Rate (ESR) Reviewed date:06/15/2024 08:20:38 AM Interpretation: Performing Lab: Notes/Report: Test performed by [email or web address] [address] [place] [address] , [place] [address] Morgan Sweeney MD, Digital Marketing Assistant CLIA: [id number] Erythrocyte Sedimentation Rate (ESR), Automated 30 <31 mm/hr Reason For Referral Diagnosis 1 Gallstones (K80.20) Referral Organization [facility] Referring Provider First Name Danette Referring Provider Last Name Natividad Referring Provider Speciality Physician Drug Enforcement Agent Referred Provider Specialty General Surg vikash General Notes Danette Henson 09:51:27 AM >Pt needs an appt with Ruby Lowe Brynn 12/01/2024 10:51:29 AM > 12/09/2024 at 09:15am; patient informed Referral Priority Routine Medications Medication SIG (Take, Route, Frequency, Duration) Notes Start Date End Date Status Ondansetron 4 MG 1 tablet on the tong ue and allow to dissolve Orally 3 times a day, prn 01/03/2025 Active rOPINIRole HCl 0.5 MG 1 or [...] a day; Duration: 30 days 12/29/2024 Active hydrOXYzine HCl 25 MG 1 tablet as needed Orally four times a day as needed Active CeleBREX 200 MG 1 cap(s) orally once a day Active Immunizations Vaccine Route Administration Date Status Comme nts Tetanus Tdap-Adacel (over 7yrs) IM Intramuscular 2014 Administered Problems Problem Type SNOMED Code ICD Code Onset Dates Problem Status W/U Status Risk Notes Problem Gastroesophageal reflux disease (054349638) GERD (gastroesophageal reflux disease) (K21.9) Active confirmed Problem Anxiety (37338176) Anxiety (F41.9) Active confi rmed Problem Sciatic nerve lesion (526603229) Piriformis syndrome of left side (G57.02) Active confirmed Problem Restless legs syndrome (61923126) Restless leg syndrome (G25.81) Active confirmed Problem Acute exacerbation of chronic obstructive airways disease (797650864) COPD exacerbation (J44.1) Active confirmed Problem Mixed hyperlipidemia (792550681) Mixed hyperlipidemia (E78.2) Active confirmed Problem Disorder of bone (63786788) Other specified disorders of bone density and structure, unspecified site (M85.80) Active confirmed Problem Sciatica (34831756) Sciatica of right side (M54.31) Active confirmed Problem Panic disorder (403692629) Panic attacks (F41.0) Active confirmed Problem Tension headache (009303101) Tension headache (G44.209) Active confirmed Problem Chronic bronchitis (05030649) Chronic bronchitis (J42) Active confirmed Problem Osteoarthritis of multiple joints (476803564) Osteoarthritis of multiple joints, unspecified osteoarthritis type (M15.9) Active confirmed Problem Rheumatoid arthritis (37327715) Rheumatoid arthritis involving multiple sites with positive rheumatoid factor (M05.79) Active confirmed Problem Sciatica (97742033) Acute right- sided low back pain with right-sided sciatica (M54.41) Active confirmed Problem Tobacco use (864216262) Tobacco use disorder (F17.200) Active confirmed Problem Rheumatoid arthritis (64528633) Rheumatoid arthritis flare (M06.9) Active confirmed Problem Gallstones (024559837) Gallstones (K80.20) Active confirmed Problem Allergic rhinitis (06293258) Allergic rhinitis, unspecified seasonality, unspecified trigger (J30.9) Active confirmed Problem Inflammation of joint of shoulder region (073548810) 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) Active confirmed Problem 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 Problem Body mass index 25-29 - overweight (957238132) Body mass index [BMI] 27.0-27.9, adult (Z68.27) Active confirmed Problem Gastroesophageal reflux disease (149670015) Gastroesophageal reflux disease, unspecified whether esophagitis present (K21.9) Active confirmed Problem Rheumatoid arthritis (64982841) Rheumatoid arthritis, involving unspecified site, unspecified whether rheumatoid factor present (M06.9) Active confirmed Vital Signs Heart Rate 91 /min 12/29/2024 Blood pressure diastolic 72 mm Hg 12/29/2024 Height 64 in 12/29/2024 Blood pressure systolic 122 mm Hg 12/29/2024 Weight 146.6 lbs 12/29/2024 BMI 25.16 kg/m2 12/29/2024 Encounters Encounter Location Date Provider Diagnosis [facility] [address], [place] [id number] 02/11/2024 Danette Henson Anxiety F41.9 ; Dulce c attacks F41.0 and Abscess L02.91 [facility] [address] [place], [place] [id number] 03/03/2024 Danette Henson Bronchitis J40 ; Anx iety F41.9 and Panic attacks F41.0 [facility] [address] [place], [place] [id number] 04/30/2024 Logan Osuna 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 [facility] [address] [place], [place] [id number] 06/02/2024 Danette Henson Adult general medica l [...] and Personal history of nicotine dependence Z87.891 [facility] [address] [place] [id number] 06/30/2024 Danette Crowdy Mass of upper outer quadrant of right breast N63.11 and Restless leg syndrome G25.81 [facility] [address] [place], [place] [id number] 08/12/2024 Jus Outlook Conjunctivitis of ri ght eye, unspecified conjunctivitis type H10.9 ; Elevated blood pressure reading R03.0 and BMI 24.0-24.9, adult Z68.[address] [place] [id number] 09/02/2024 Jus Outlook Elevated blood press ure reading R03.0 ; Restless leg syndrome G25.81 ; Conjunctivitis of right eye, unspecified conjunctivitis type H10.9 ; Allergic rhinitis, unspecified seasonality, unspecified trigger J30.9 and BMI 24.0-24.9, adult Z68.[address] [place], [place] [id number] 10/12/2024 R David Osuna 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 and 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 [facility] [place], [place] [id number] 12/01/2024 Danette Crowdy Gallstones K80.20 ; GERD [...] Mixed hyperlipidemia E78.2 and BMI 25.0-25.9,adult Z68.25 [facility] [address] [place], [place] [id number] 12/29/2024 Danette Crowdy Gallstones K80.20 ; GERD (gastroesophageal reflux disease) K21.9 ; Nausea R11.0 ; Panic attacks F41.0 and BMI 25.0-25.9,adult Z68.25 [facility] [address] [place], [place] [id number] 05/07/2024 R David Thao [facility] [address] [place], [place] [id number] 06/03/2024 Danette Crowdy [facility] [address] [place], [place] [id number] 07/16/2024 Danette Crowdy [facility] [address] [place], [place] [id number] 11/05/2024 Danette Crowdy [facility] [address] [place], [place] [id number] 12/14/2024 R David Thao [facility] [address] [place], [place] [id number] 12/16/2024 Danette Crowdy [facility] [address] [place], [place] [id number] 01/03/2025 Danette Crowdy [facility] [address] [place], [place] [id number] 01/03/2025 Danette Crowdy Assessments Encounter Date Diagnosis (ICD Code) Assessment Notes Treatment Notes Treatment Clinical Notes Section Notes 04/30/2024 Rheumatoid arthritis involving multiple sites with positive rheumatoid factor (ICD-10 - M05.79) 06/02/2024 Adult general medical examination (ICD-10 - Z00.00) Patient instructed to return to office Annually for Annual Wellness Visits to include annual screenings of Pain assessment, Functional Ability assessment, Cognitive Ability assessment, Fall Risk assessment, Depression screening and Bladder control screening. 06/02/2024 GERD (gastroesophageal reflux disease) (ICD-10 - K21.9) 02/11/2024 Anxiety (ICD-10 - F41.9) 02/11/2024 Panic attacks (ICD-10 - F41.0) Will stop the lorazepam and try hydroxyzine. 03/03/2024 Bronchitis (ICD-10 - J40) 03/03/2024 Anxiety (ICD-10 - F41.9) 06/30/2024 Mass of upper outer quadrant of right breast (ICD-10 - N63.11) 06/30/2024 Restless leg syndrome (ICD-10 - G25.81) 08/12/2024 Conjunctivitis of right eye, unspecified conjunctivitis type (ICD-10 - H10.9) 08/12/2024 Elevated blood pressure reading (ICD-10 - R03.0) 09/02/2024 Elevated blood pressure reading (ICD-10 - R03.0) BP normal now 09/02/2024 Restless leg syndrome (ICD-10 - G25.81) 12/01/2024 Gallstones (ICD-10 - K80.20) 12/01/2024 GERD (gastroesophageal reflux disease) (ICD-10 - K21.9) 10/12/2024 Rheumatoid arthritis involving multiple sites with positive rheumatoid factor (ICD-10 - M05.79) 10/12/2024 Immunodeficiency due to drugs (ICD-10 - D84.821) 12/29/2024 Gallstones (ICD-10 - K80.20) Patient has been seeing Dr. Mujica. He wanted to do an MRCP but she is unsure if she wants to do this test. She would like to try increasing her anxiety medication to see if it helps with the nausea first. 12/29/2024 GERD (gastroesophageal reflux disease) (ICD-10 - K21.9) 12/29/2024 Nausea (ICD-10 - R11.0) 12/01/2024 Rheumatoid arthritis, involving unspecified site, unspecified whether rheumatoid factor present (ICD-10 - M06.9) Patient has bone density done at Rheumatology office. 09/02/2024 Conjunctivitis of right eye, unspecified conjunctivitis type (ICD-10 - H10.9) 08/12/2024 BMI 24.0-24.9, adult (ICD-10 - Z68.24) 03/03/2024 Panic attacks (ICD-10 - F41.0) 02/11/2024 Abscess (ICD-10 - L02.91) 06/02/2024 Rheumatoid arthritis, involving unspecified site, unspecified whether rheumatoid factor present (ICD-10 - M06.9) 06/02/2024 Anxiety (ICD-10 - F41.9) 09/02/2024 Allergic rhinitis, unspecified seasonality, unspecified trigger (ICD-10 - J30.9) 12/01/2024 Anxiety (ICD-10 - F41.9) 12/29/2024 Panic attacks (ICD-10 - F41.0) 12/29/2024 BMI 25.0-25.9,adult (ICD-10 - Z68.25) 12/01/2024 Renal insufficiency (ICD-10 - N28.9) 09/02/2024 BMI 24.0-24.9, adult (ICD-10 - Z68.24) 06/02/2024 Renal insufficiency (ICD-10 - N28.9) 06/02/2024 Chronic bronchitis (ICD-10 - J42) 12/01/2024 Chronic bronchitis (ICD-10 - J42) 12/01/2024 Panic attacks (ICD-10 - F41.0) 06/02/2024 Panic attacks (ICD-10 - F41.0) 06/02/2024 Tobacco use disorder (ICD-10 - F17.200) 12/01/2024 Tobacco use disorder (ICD-10 - F17.200) 12/01/2024 Restless leg syndrome (ICD-10 - G25.81) 06/02/2024 Restless leg syndrome (ICD-10 - G25.81) 06/02/2024 Osteoarthritis of multiple joints, unspecified osteoarthritis type (ICD-10 - M15.9) 12/01/2024 Osteoarthritis of multiple joints, unspecified osteoarthritis type (ICD-10 - M15.9) 12/01/2024 Mixed hyperlipidemia (ICD-10 - E78.2) 06/02/2024 Hyperkalemia (ICD-10 - E87.5) 12/01/2024 BMI 25.0-25.9,adult (ICD-10 - Z68.25) 06/02/2024 Mixed hyperlipidemia (ICD-10 - E78.2) 06/02/2024 [...] Date [employer] ([employer]) [address] [address] [place] [address] [id number] Whitney Stafford Self - patient is the [...]
--- OUTSIDE RECORDS SUMMARY | 2025-01-11 07:35 | XMS_ITS | Encounter Summary ---
[facility] Address [address] [place] [address] Care Team Providers Care Hide And Skin Processing Worker Name Role Phone Damon Osuna MD Primary Care Provider Reason for Visit * Reason Onset Date Comments Med Refill 11/29/2024 Encounter Details Date Type Department Care Team (Late st Contact Info) Description 11/29/2024 Refill [facility] [address] [phone] Jeffrey Faustin MD [address] [id number] Rheumatoid arthritis involving multiple sites with positive [...] Chela Relationship: Self Best call back number: [phone] Requested Prescriptions: Requested Prescriptions Pending Prescriptions Disp [...] Description 03/21/2025 1:30 PM EST Appointment [facility] RHEUMATOLOGY DEXA [address] [phone] 03/21/2025 2:00 PM EST Office Visit [facility] [address] [phone] Jeffrey Faustin MD [address] [address] documented as of this encounter Visit Diagnoses Diagnosis Rheumatoid arthritis involving multiple sites with positive rheumatoid factor documented in this encounter Care Teams Hide And Skin Processing Worker Relationship Specialty Start Date End Date Damon Osuna MD [facility] [address] [place] [address] PCP - General Family Medicine 10/29/23 documented as of this encounter
--- NOTE | 2025-01-11 08:00 | MR_ITS ---
FINAL REPORT TECHNIQUE: Multiplanar MR imaging of the abdomen was performed with and without contrast. MRCP was performed. CLINICAL HISTORY: right upper quad pain FINDINGS: The exam is somewhat degraded by patient respiratory motion. There is a well-circumscribed cystic structure in the periphery of the right lobe of the liver measuring 1.5 cm well-seen on image 13 of series 9. The liver is otherwise homogeneous. The gallbladder is present. There is an intraluminal signal abnormality measuring 1.7 cm consistent with a gallstone. There is no pericholecystic inflammation. No intrahepatic ductal dilatation is identified. The common duct is normal. The spleen, pancreas, adrenals, and kidneys are unremarkable. There is no evidence of abnormal contrast-enhancement. On the MRCP images, the pancreatic duct is unremarkable. There is no choledocholithiasis. IMPRESSION: Benign-appearing cyst in the posterior right lobe of the liver. Gallstone. Reviewed, Interpreted and Dictated by Umair Degroot MD Transcribed by Joy Aparicio Authenticated and [facility]
[2025-01-11 08:03] LABS: Blood Urea Nitrogen 17 mg/dl (7-17); Creatinine,Serum 0.80 mg/dl (0.52-1.04); Estimated Glomerular Filt Rate 72 ml/min (>60); GFR (African American) 87 ML/MIN (>60)
--- NOTE | 2025-01-11 08:42 | XR_ITS ---
FINAL REPORT CLINICAL HISTORY: metal plate/ r/o metallic foreign body for mri. FINDINGS: 4 views of the skull were obtained for MRI clearance. No radiopaque foreign body identified. IMPRESSION: No radiopaque foreign body. Reviewed, Interpreted and Dictated by Umair Degroot MD Transcribed by Deedee Presley Authenticated and [facility]
[2025-01-11] MEDS: 0.9 % SODIUM CHLORIDE 50 ML VIAL 20 ML IV (09:56)
[2025-01-11] MEDS: SODIUM CHLORIDE 0.9% 10ML SYR (RAD ONLY) 10 ML IV (09:56)
[2025-01-11] MEDS: GADOTERIDOL INJ 20ML SYRINGE 13 ML IV (09:56)
== END 2025-01-11 23:59 | disposition home or self-care (01) ==
LOC: RAD 07:32
PROVIDERS: PCP Family Medicine; Visit Provider Surgery
DX: K80.20 Calculus of gallbladder without cholecystitis without obstruction (principal); K76.89 Other specified diseases of liver
CPT/HCPCS: 36415; 70250; 74183; 76376; 82565; 84520; A9576